=== PATIENT | male | born 1950 | race Caucasian/White ===

== ENCOUNTER 2020-08-12 10:02 | Outpatient (REF) | payer BC, SELFPAY ==
[2020-08-12 10:47] LABS: MANUAL DIFF FLAG NO
[2020-08-12 11:05] LABS: Basophils Percent Auto 0.4 % (0-2); Eosinophils Absolute Auto 0.1 X10*3/uL (0.0-0.4); Eosinophils Percent Auto 1.4 % (0-4); Hematocrit 43.4 % (42-52); Hemoglobin 14.7 g/dl (14.0-18.0); Imm Gran Abs Auto 0.01 X10*3/uL (0.00-0.03); Imm Gran Pct Auto 0.2 % (0.0-0.4); Lymphocytes Absolute Auto 0.9 X10*3/uL (1.2-4.9); Lymphocytes Percent Auto 17.2 % (20-40); Mean Corpuscular HGB Conc 33.9 g/dl (31.0-36.0); Mean Corpuscular Hemoglobin 29.2 pg (27.0-33.0); Mean Corpuscular Volume 86.1 fL (80-98); Mean Platelet Volume 10.2 fL (9.4-12.4); Monocytes Absolute Auto 0.4 X10*3/uL (0.1-1.2); Neutrophils Absolute Auto 3.6 X10*3/uL (2.0-8.3); Neutrophils Percent Auto 72.8 % (45-73); Platelet Count 158 X10*3/uL (160-400); Red Blood Count 5.04 X10*6/uL (4.60-5.80); Red Cell Distribution Width 14.3 % (11.0-16.0)
[2020-08-12 11:25] LABS: Alanine Aminotransferase 8 U/L (0-40); Albumin Level 4.1 g/dL (3.5-5.0); Alkaline Phosphatase 73 U/L (39-117); Aspartate Amino Transferase 13 U/L (5-37); Bilirubin Direct 0.5 mg/dL (0.0-0.5); Bilirubin Total 0.8 mg/dL (0.0-1.0); Total Protein 6.4 g/dL (6.5-8.0)
== END 2020-08-12 10:03 | disposition home or self-care (01) ==
LOC: HO.LABR 10:02
PROVIDERS: PCP Internal Medicine; Visit Provider Internal Medicine
DX: K50.00 Crohn's disease of small intestine without complications (principal)
CPT/HCPCS: 36415; 80076; 85025

== ENCOUNTER 2020-12-02 09:34 | Outpatient (REF) | payer BC, SELFPAY ==
[2020-12-02 11:29] LABS: MANUAL DIFF FLAG NO
[2020-12-02 11:50] LABS: Basophils Percent Auto 0.4 % (0-2); Eosinophils Absolute Auto 0.1 X10*3/uL (0.0-0.4); Eosinophils Percent Auto 1.5 % (0-4); Hematocrit 44.9 % (42-52); Hemoglobin 14.8 g/dl (14.0-18.0); Imm Gran Abs Auto 0.01 X10*3/uL (0.00-0.03); Imm Gran Pct Auto 0.2 % (0.0-0.4); Lymphocytes Absolute Auto 0.8 X10*3/uL (1.2-4.9); Lymphocytes Percent Auto 16.1 % (20-40); Mean Corpuscular Hemoglobin 28.8 pg (27.0-33.0); Mean Corpuscular Volume 87.4 fL (80-98); Mean Platelet Volume 10.5 fL (9.4-12.4); Monocytes Absolute Auto 0.4 X10*3/uL (0.1-1.2); Monocytes Percent Auto 9.1 % (2-11); Neutrophils Absolute Auto 3.4 X10*3/uL (2.0-8.3); Neutrophils Percent Auto 72.7 % (45-73); Platelet Count 157 X10*3/uL (160-400); Red Blood Count 5.14 X10*6/uL (4.60-5.80); Red Cell Distribution Width 14.3 % (11.0-16.0); White Blood Count 4.7 X10*3/uL (4.8-10.8)
[2020-12-02 11:56] LABS: Troponin-I High Sensitivity 6.2 ng/L (<3.5-35.0)
[2020-12-02 12:06] LABS: Alanine Aminotransferase 12 U/L (0-40); Albumin Level 4.1 g/dL (3.5-5.0); Alkaline Phosphatase 78 U/L (39-117); Aspartate Amino Transferase 12 U/L (5-37); Bilirubin Direct 0.5 mg/dL (0.0-0.5); Bilirubin Total 1.2 mg/dL (0.0-1.0); Total Protein 6.4 g/dL (6.5-8.0)
== END 2020-12-02 09:35 | disposition home or self-care (01) ==
LOC: HO.LAB 09:34
PROVIDERS: Absent Provider Internal Medicine; PCP Internal Medicine; Visit Provider Internal Medicine
DX: R07.2 Precordial pain (principal); I10 Essential (primary) hypertension; E78.5 Hyperlipidemia, unspecified; K50.00 Crohn's disease of small intestine without complications; Z79.899 Other long term (current) drug therapy
CPT/HCPCS: 36415; 80076; 84484; 85025; 93005

== ENCOUNTER → 2021-02-04 08:10 | Outpatient (REF) | payer BC, SELFPAY ==
--- NOTE | 2021-02-04 08:13 | CA_ITS ---
Transthoracic Echocardiogram Patient (Last, First, Middle): Onesimo Mart W Gender: Male Date of : 1950 Age: 71 Procedure Date: 02/04/2021 Procedure Type: Transthoracic Echocardiogram Location: OP Height: 175.26 cm Weight: 81.65 kg BSA: 1.98 m2 Heart Rate: bpm BP: 136 / 80 mmHg Hand Packer/Packager: IRINEO Referring MD: Jeff Cross MD Symptoms: R07.2 - Precordial pain Study Quality: Good Conclusions: - Normal left ventricular size and systolic function. - There is mildly increased left ventricular wall thickness. - Diastolic function is normal for age. - Normal right ventricular cavity size and systolic function. - The left atrium is mildly dilated. Findings Left Ventricle Normal left ventricular size and systolic function. There is mildly increased left ventricular wall thickness. The visually estimated ejection fraction is between 55-60%. There is no evidence of regional wall motion abnormalities. Diastolic function is normal for age. Right Ventricle Normal right ventricular cavity size and systolic function. Atria The left atrium is mildly dilated. The right atrium is normal in size. Aortic Valve There is a normal trileaflet aortic valve. There is no aortic valve stenosis. There is trace (trivial) aortic valve regurgitation. Mitral Valve Normal mitral valve structure and function. There is no mitral valve regurgitation. There is no mitral valve stenosis. Pulmonic Valve The pulmonic valve is likely normal. Tricuspid Valve Normal tricuspid valve structure and function. There is trace tricuspid valve regurgitation. Normal right atrial pressure. There is no evidence of pulmonary hypertension. Great Vessels All visible segments of the aorta are normal in size. The visualized portions of the pulmonary artery and branches are normal. Venous The inferior vena cava is normal in size and collapses greater than 50% with inspiration. Pericardium/Pleural There is no evidence of pericardial effusion. Measurements 2D Linear Measurements IVSd: 1.07 0.6-0.9/0.6-1.0 cm LVIDd: 4.73 3.9-5.3/4.2-5.9 cm LVIDd Index: 2.39 2.4-3.2/2.2-3.1 cm/m2 LVIDs: 3.29 2.0-3.6 cm LVPWd: 1.03 0.7-1.1 cm Ao Root: 4.10 2.1-3.5 cm LA Diam: 3.80 2.7-3.8/3.0-4.0 cm LAIDs Index: 1.92 1.5-2.3 cm/m2 LV Mass: 221.30 67-162/88-224 g LV Mass Index: 111.77 43-95/49-115 g/m2 LVOT Diam: 2.30 3.0+(-)1.3 cm 2D Systolic Function EF 4C: 57.30 >55% EF 2C: 66.80 >55% EF BiP: 63.10 >55% Mitral Valve MV Pk E: 1.05 MV PK A: 0.64 MV Decel Time: 211.00 E/A: 1.60 E'Lateral: 10.70 E'Medial: 7.72 E/E' Med: 13.60 E/E' Lat: 9.80 PHT: 62.00 MVA PHT: 3.55 Decel [place]: 4.99 Aortic Valve AoV Pk Guy: 1.20 AoV Mn Guy: 0.85 AoV VTI: 0.28 AoV Pk Grad: 6.00 Aov Mn Grad: 3.00 MAURO Cont.VTI: 3.18 LVOT LVOT Pk Guy: 0.80 LVOT Mn Guy: 0.54 LVOT VTI: 0.21 LVOT Pk Grad: 3.00 LVOT Mn Grad: 1.00 LVOT Diam: 2.30 LVOT Area: 4.15 Diastolic Function MV Pk E: 1.05 MV Pk A: 0.64 E/A: 1.60 E'Medial: 7.72 E/E' Med: 13.60 E' Laterial: 10.70 E/E' Lat: 9.80 Tricuspid Valve TR Pk Guy: 2.10 TR Pk Grad: 18.00 RA Press: 3.00 RVSP: 21.00 Great Vessels Aorta Ao Root-2D: 4.10 2.0-3.7 cm Ao Asc: 3.10 2.1-3.4 cm Ao Arch: 2.80 Updated in Other Vendor System with Status of Final Too Baugh MD electronically signed on 02/07/2021 10:29:05 AM with status of Final
== END ==
LOC: HO.CARD 08:10
PROVIDERS: PCP Internal Medicine; Visit Provider Internal Medicine
DX: R07.2 Precordial pain (principal)
CPT/HCPCS: 93306

== ENCOUNTER → 2021-02-16 07:51 | Outpatient (REF) | payer BC, SELFPAY ==
--- NOTE | ~2021-02-16 | NM_ITS ---
Exercise Myocardial perfusion study Indication: Precordial pain Technique: The patient was brought in for an exercise perfusion study on 02/16/2021. Patient performed exercise as per Dmitri protocol and was injected 25 mCi of sestamibi was given intravenously one target HR was achieved. Images were obtained using the SPECT gamma camera interlaced with the gating device. Images were obtained in supine position. Resting perfusion study was performed on 02/17/2021. Patient was administered any 5 mCi of sestamibi intravenously at rest. Images were then obtained in supine position. Images obtained with and without CT attenuation. Total DLP 97 mGy-cm. Images were processed with the software and compared side to side in short axis, horizontal long axis and vertical long axis views. Findings: The stress perfusion study showed nonattenuated images show minimally reduced uptake in the basal septum of the LV myocardium. Remainder of the LV myocardium is normally perfused. Attenuation corrected images show mildly reduced uptake in the distal septum and apex of the LV myocardium.. The gated study shows normal LV systolic function with calculated LVEF of 60%. LV cavity is mildly dilated in size. The gated study shows normal systolic wall thickening and contraction of all segments. There is no transient ischemic dilation. Resting study shows no change in perfusion pattern compared to stress perfusion study. Gating at rest reveals normal systolic wall motion with ejection fraction at 63%. The findings are consistent with no clear reversible defect suggestive of ischemia. Most likely normal myocardial perfusion. NM/NM cardiolite stress test Impression: 1. Likely normal myocardial perfusion 2. Gated LVEF is 60% 3. Transient ischemic dilatation not present Stress EKG is equivocal for ischemia
--- NOTE | 2021-02-16 08:00 | CA_ITS ---
Acquisition Time: 2021-02-16 08:33:37 Total Exercise Time: 00:06:46 Test Indications: RO7.2 PRECORDIAL CHEST PAIN Medications: Protocol: MEHNAZ Max HR: 136 BPM 91% of Pred: 148 BPM Max BP: 202/078 mmHG Max Work Load: 8.1 METS Exercise stress test with exercise 6 min 46 sec of Mehnaz protocol, without anginal symptoms, with rare PVC during exercise and frequent PVC and ventricular cuplets during recovery, with hypertensive reponse to exercise with max BP 202/ 78, with QRS width 0.08 ms at baseline and with increased heart rate width increased to 0.12ms, with ST depressions in V6 only, not meeting criteria for ischemia. Nuclear images pending. Test reviewed with Dr Cross Referred By: Jeff Cross Overread By: CONSTANTINO ANTHONY
== END ==
LOC: HO.CARD 07:51
PROVIDERS: Visit Provider Internal Medicine
DX: R07.2 Precordial pain (principal)
CPT/HCPCS: 78452; 93017; A9500

== ENCOUNTER 2021-05-26 10:12 | Outpatient (REF) | payer BC, SELFPAY ==
[2021-05-26 11:11] LABS: MANUAL DIFF FLAG NO
[2021-05-26 11:29] LABS: Basophils Percent Auto 0.4 % (0-2); Eosinophils Absolute Auto 0.1 X10*3/uL (0.0-0.4); Eosinophils Percent Auto 1.4 % (0-4); Hematocrit 44.2 % (42-52); Hemoglobin 15.1 g/dl (14.0-18.0); Imm Gran Abs Auto 0.02 X10*3/uL (0.00-0.03); Imm Gran Pct Auto 0.4 % (0.0-0.4); Lymphocytes Absolute Auto 0.9 X10*3/uL (1.2-4.9); Lymphocytes Percent Auto 17.6 % (20-40); Mean Corpuscular HGB Conc 34.2 g/dl (31.0-36.0); Mean Corpuscular Hemoglobin 29.6 pg (27.0-33.0); Mean Corpuscular Volume 86.7 fL (80-98); Mean Platelet Volume 10.2 fL (9.4-12.4); Monocytes Absolute Auto 0.5 X10*3/uL (0.1-1.2); Monocytes Percent Auto 9.5 % (2-11); Neutrophils Absolute Auto 3.5 X10*3/uL (2.0-8.3); Neutrophils Percent Auto 70.7 % (45-73); Platelet Count 161 X10*3/uL (160-400); Red Cell Distribution Width 14.1 % (11.0-16.0); White Blood Count 4.9 X10*3/uL (4.8-10.8)
[2021-05-26 11:35] LABS: Alanine Aminotransferase 11 U/L (0-40); Albumin Level 4.2 g/dL (3.5-5.0); Alkaline Phosphatase 82 U/L (39-117); Aspartate Amino Transferase 14 U/L (5-37); Bilirubin Direct 0.5 mg/dL (0.0-0.5); Bilirubin Total 1.3 mg/dL (0.0-1.0); Total Protein 6.5 g/dL (6.5-8.0)
== END 2021-05-26 10:13 | disposition home or self-care (01) ==
LOC: HO.LABR 10:12
PROVIDERS: PCP Internal Medicine; Visit Provider Internal Medicine
DX: K50.00 Crohn's disease of small intestine without complications (principal)
CPT/HCPCS: 36415; 80076; 85025

== ENCOUNTER 2021-06-17 08:08 | Outpatient (REF) | payer BC, SELFPAY ==
[2021-06-17 08:27] LABS: MANUAL DIFF FLAG NO
[2021-06-17 08:57] LABS: Basophils Percent Auto 0.4 % (0-2); Eosinophils Absolute Auto 0.1 X10*3/uL (0.0-0.4); Eosinophils Percent Auto 1.2 % (0-4); Hematocrit 43.3 % (42-52); Hemoglobin 14.6 g/dl (14.0-18.0); Imm Gran Abs Auto 0.01 X10*3/uL (0.00-0.03); Imm Gran Pct Auto 0.2 % (0.0-0.4); Lymphocytes Absolute Auto 0.6 X10*3/uL (1.2-4.9); Lymphocytes Percent Auto 11.2 % (20-40); Mean Corpuscular HGB Conc 33.7 g/dl (31.0-36.0); Mean Corpuscular Hemoglobin 28.9 pg (27.0-33.0); Mean Corpuscular Volume 85.6 fL (80-98); Mean Platelet Volume 10.4 fL (9.4-12.4); Monocytes Absolute Auto 0.5 X10*3/uL (0.1-1.2); Monocytes Percent Auto 9.3 % (2-11); Neutrophils Absolute Auto 4.4 X10*3/uL (2.0-8.3); Neutrophils Percent Auto 77.7 % (45-73); Platelet Count 155 X10*3/uL (160-400); Red Blood Count 5.06 X10*6/uL (4.60-5.80); Red Cell Distribution Width 14.2 % (11.0-16.0); White Blood Count 5.6 X10*3/uL (4.8-10.8)
[2021-06-17 09:23] LABS: Alanine Aminotransferase 12 U/L (0-40); Alkaline Phosphatase 75 U/L (39-117); Anion Gap 8 (12-20); Aspartate Amino Transferase 13 U/L (5-37); Bilirubin Total 1.2 mg/dL (0.0-1.0); Blood Urea Nitrogen 9 mg/dL (9-16); Calcium 9.1 mg/dL (8.4-10.2); Carbon Dioxide 32 mmol/L (22-29); Chloride 107 mmol/L (96-108); Cholesterol 102 mg/dL; Estimated Glomerular Filt Rate > 60; Glucose Random 106 mg/dL (60-115); HDL Cholesterol 40 mg/dL; LDL Cholesterol Calculated 51 mg/dl; Potassium 4.4 mmol/L (3.3-5.1); Sodium 143 mmol/L (135-145); Total Protein 6.1 g/dL (6.5-8.0); Triglycerides 58 mg/dL
[2021-06-17 09:43] LABS: Thyroid Stimulating Hormone 1.66 uIU/mL (0.32-4.0); Vitamin D 25-OH Total 32.4 ng/mL (>30)
[2021-06-17 10:14] LABS: Folate > 20.0 ng/mL (> or = 4.0); Vitamin B12 1424 pg/mL (200-900)
== END 2021-06-17 08:09 | disposition home or self-care (01) ==
LOC: HO.LAB 08:08
PROVIDERS: PCP Internal Medicine; Visit Provider Internal Medicine
DX: R07.2 Precordial pain (principal); I10 Essential (primary) hypertension; E55.9 Vitamin D deficiency, unspecified; K50.00 Crohn's disease of small intestine without complications
CPT/HCPCS: 36415; 80053; 80061; 82306; 82607; 82746; 84443; 85025

== ENCOUNTER 2021-08-19 13:04 | Outpatient (REF) | payer BC, SELFPAY ==
[2021-08-19 13:19] LABS: MANUAL DIFF FLAG NO
[2021-08-19 13:55] LABS: Basophils Percent Auto 0.4 % (0-2); Eosinophils Absolute Auto 0.1 X10*3/uL (0.0-0.4); Eosinophils Percent Auto 2.1 % (0-4); Hematocrit 44.7 % (42.0-52.0); Hemoglobin 14.7 g/dl (14.0-18.0); Imm Gran Abs Auto 0.01 X10*3/uL (0.00-0.03); Imm Gran Pct Auto 0.2 % (0.0-0.4); Lymphocytes Absolute Auto 1.1 X10*3/uL (1.2-4.9); Lymphocytes Percent Auto 22.4 % (20-40); Mean Corpuscular HGB Conc 32.9 g/dl (31.0-36.0); Mean Corpuscular Hemoglobin 28.9 pg (27.0-33.0); Mean Platelet Volume 10.8 fL (9.4-12.4); Monocytes Absolute Auto 0.5 X10*3/uL (0.1-1.2); Monocytes Percent Auto 10.7 % (2-11); Neutrophils Absolute Auto 3.1 x10*3/uL (2.0-8.3); Neutrophils Percent Auto 64.2 % (45-73); Platelet Count 184 X10*3/uL (160-400); Red Blood Count 5.08 X10*6/uL (4.60-5.80); Red Cell Distribution Width 14.1 % (11.0-16.0); White Blood Count 4.9 X10*3/uL (4.8-10.8)
[2021-08-19 14:26] LABS: Alanine Aminotransferase 116 U/L (0-40); Alkaline Phosphatase 112 U/L (39-117); Aspartate Amino Transferase 57 U/L (5-37); Bilirubin Direct 0.4 mg/dL (0.0-0.5); Bilirubin Total 1.1 mg/dL (0.0-1.0); Total Protein 6.5 g/dL (6.5-8.0)
== END 2021-08-19 13:05 | disposition home or self-care (01) ==
LOC: HO.LABR 13:04
PROVIDERS: PCP Internal Medicine; Visit Provider Internal Medicine
DX: K50.00 Crohn's disease of small intestine without complications (principal)
CPT/HCPCS: 36415; 80076; 85025

== ENCOUNTER 2021-08-24 09:05 | Outpatient (REF) | payer BC, SELFPAY ==
--- NOTE | ~2021-08-24 | US_ITS ---
EXAMINATION: US ABDOMEN COMPLETE CLINICAL INFORMATION: Elevated liver enzymes. Crohn's disease. COMPARISON: None TECHNIQUE: Real-time imaging of the abdominal viscera. FINDINGS: PANCREAS: Not well visualized due to bowel gas ABDOMINAL AORTA: The distal abdominal aorta is normal in caliber. The proximal and mid abdominal aorta are not well visualized due to bowel gas. INFERIOR VENA CAVA: Not well visualized due to bowel gas. LIVER: The liver is normal in size. The liver contour is normal. Liver echotexture is slightly increased. No focal hepatic lesion. There is no intrahepatic biliary duct dilatation seen. GALLBLADDER: Normal. The gallbladder is physiologically distended without evidence of stones, sludge, polyps, wall thickening or pericholecystic fluid. COMMON BILE DUCT: Normal in caliber measuring 0.4 cm in diameter. RIGHT KIDNEY: There is a 3 cm cyst in the lower pole. No hydronephrosis or renal calculi. The kidney measures 9.3 cm in maximum dimension. LEFT KIDNEY: Normal. No hydronephrosis. No renal calculi or focal parenchymal lesions. The kidney measures 12.0 cm in maximum dimension. SPLEEN: Normal. The spleen measures 12.0 cm in maximum dimension. FREE FLUID: None. US/US abdomen complete IMPRESSION: Slightly echogenic liver probably representing fatty infiltration. Limited visualization of the pancreas, aorta and IVC. Right renal cyst.
== END 2021-08-24 09:06 | disposition home or self-care (01) ==
LOC: HO.US 09:05
PROVIDERS: PCP Internal Medicine; Visit Provider Internal Medicine
DX: R74.8 Abnormal levels of other serum enzymes (principal); K50.00 Crohn's disease of small intestine without complications
CPT/HCPCS: 76700

== ENCOUNTER 2021-08-29 08:44 | Outpatient (REF) | payer BC, SELFPAY ==
[2021-08-29 10:04] LABS: Prothrombin Time 11.6 SEC (9.9-13.0)
[2021-08-29 10:34] LABS: Alanine Aminotransferase 23 U/L (0-40); Alkaline Phosphatase 93 U/L (39-117); Aspartate Amino Transferase 15 U/L (5-37); Bilirubin Direct 0.4 mg/dL (0.0-0.5); Bilirubin Total 0.8 mg/dL (0.0-1.0); C Reactive Protein 0.17 mg/dL (< or = 0.50); Total Protein 6.3 g/dL (6.5-8.0)
[2021-08-29 10:41] LABS: HBc Num1 0.05 S/CO (0.00-0.79); HBsAGNum1 0.21 S/CO (0.00-0.99); Hepatitis B Core Antibody Nonreactive (Nonreactive); Hepatitis B Surface Antigen Negative (Negative)
[2021-08-29 10:51] LABS: Erythrocyte Sedimentation Rate 3 MM/HR (0-15)
[2021-08-29 10:54] LABS: ~Hepatitis B Surface Antibody NONREACTIVE (Nonreactive); ~Hepatitis C Antibody Nonreactive (Nonreactive)
[2021-08-31 07:53] LABS: Hepatitis A Antibody IgM 0.11 Index (0-0.79); ~Hepatitis A Antibody IgM Nonreactive (Nonreactive)
[2021-08-31 08:20] LABS: HBS Num1 0.46 mIU/mL (0-7.99); ~HepC Num1 0.08 S/CO (0.00-0.79)
== END 2021-08-29 08:45 | disposition home or self-care (01) ==
LOC: HO.LAB 08:44
PROVIDERS: PCP Internal Medicine; Visit Provider Internal Medicine
DX: R74.8 Abnormal levels of other serum enzymes (principal); K50.00 Crohn's disease of small intestine without complications; Z79.01 Long term (current) use of anticoagulants
CPT/HCPCS: 36415; 80076; 85610; 85652; 86140; 86704; 86706; 86709; 86803; 87340

== ENCOUNTER 2021-10-20 11:05 | Outpatient (REF) | payer BC, SELFPAY ==
[2021-10-20 11:28] LABS: MANUAL DIFF FLAG NO
[2021-10-20 11:55] LABS: Basophils Percent Auto 0.2 % (0-2); Eosinophils Absolute Auto 0.1 X10*3/uL (0.0-0.4); Eosinophils Percent Auto 1.4 % (0-4); Hematocrit 43.6 % (42.0-52.0); Hemoglobin 14.8 g/dl (14.0-18.0); Imm Gran Abs Auto 0.01 X10*3/uL (0.00-0.03); Imm Gran Pct Auto 0.2 % (0.0-0.4); Lymphocytes Absolute Auto 0.8 X10*3/uL (1.2-4.9); Lymphocytes Percent Auto 17.8 % (20-40); Mean Corpuscular HGB Conc 33.9 g/dl (31.0-36.0); Mean Corpuscular Hemoglobin 29.4 pg (27.0-33.0); Mean Corpuscular Volume 86.5 fL (80.0-98.0); Mean Platelet Volume 10.7 fL (9.4-12.4); Monocytes Absolute Auto 0.5 X10*3/uL (0.1-1.2); Monocytes Percent Auto 10.1 % (2-11); Neutrophils Absolute Auto 3.1 x10*3/uL (2.0-8.3); Neutrophils Percent Auto 70.3 % (45-73); Platelet Count 173 X10*3/uL (160-400); Red Blood Count 5.04 X10*6/uL (4.60-5.80); Red Cell Distribution Width 14.6 % (11.0-16.0); White Blood Count 4.4 X10*3/uL (4.8-10.8)
[2021-10-20 12:22] LABS: Alanine Aminotransferase 10 U/L (0-40); Alkaline Phosphatase 75 U/L (39-117); Aspartate Amino Transferase 12 U/L (5-37); Bilirubin Direct 0.4 mg/dL (0.0-0.5); Bilirubin Total 1.1 mg/dL (0.0-1.0); Total Protein 6.3 g/dL (6.5-8.0)
== END 2021-10-20 11:06 | disposition home or self-care (01) ==
LOC: HO.LABR 11:05
PROVIDERS: PCP Internal Medicine; Visit Provider Internal Medicine
DX: K50.00 Crohn's disease of small intestine without complications (principal)
CPT/HCPCS: 36415; 80076; 85025

== ENCOUNTER 2021-12-07 12:24 | Outpatient (REF) | payer BC, SELFPAY ==
[2021-12-07 12:37] LABS: MANUAL DIFF FLAG NO
[2021-12-07 13:05] LABS: Basophils Percent Auto 0.3 % (0-2); Eosinophils Absolute Auto 0.1 X10*3/uL (0.0-0.4); Eosinophils Percent Auto 1.1 % (0-4); Hematocrit 44.8 % (42.0-52.0); Imm Gran Abs Auto 0.02 X10*3/uL (0.00-0.03); Imm Gran Pct Auto 0.3 % (0.0-0.4); Lymphocytes Percent Auto 15.9 % (20-40); Mean Corpuscular HGB Conc 33.5 g/dl (31.0-36.0); Mean Corpuscular Hemoglobin 29.1 pg (27.0-33.0); Mean Platelet Volume 10.4 fL (9.4-12.4); Monocytes Absolute Auto 0.6 X10*3/uL (0.1-1.2); Monocytes Percent Auto 9.4 % (2-11); Neutrophils Absolute Auto 4.6 x10*3/uL (2.0-8.3); Platelet Count 173 X10*3/uL (160-400); Red Blood Count 5.15 X10*6/uL (4.60-5.80); Red Cell Distribution Width 14.5 % (11.0-16.0); White Blood Count 6.3 X10*3/uL (4.8-10.8)
[2021-12-07 13:28] LABS: Alanine Aminotransferase 18 U/L (0-40); Albumin Level 4.1 g/dL (3.5-5.0); Alkaline Phosphatase 74 U/L (39-117); Aspartate Amino Transferase 21 U/L (5-37); Bilirubin Direct 0.5 mg/dL (0.0-0.5); Bilirubin Total 1.3 mg/dL (0.0-1.0); Total Protein 6.3 g/dL (6.5-8.0)
== END 2021-12-07 12:25 | disposition home or self-care (01) ==
LOC: HO.LABR 12:24
PROVIDERS: PCP Internal Medicine; Visit Provider Internal Medicine
DX: K50.00 Crohn's disease of small intestine without complications (principal)
CPT/HCPCS: 36415; 80076; 85025

== ENCOUNTER 2022-03-17 11:16 | Outpatient (REF) | payer BC, SELFPAY ==
[2022-03-17 11:23] LABS: MANUAL DIFF FLAG NO
[2022-03-17 12:20] LABS: Basophils Percent Auto 0.4 % (0-2); Eosinophils Absolute Auto 0.1 X10*3/uL (0.0-0.4); Eosinophils Percent Auto 1.9 % (0-4); Hematocrit 43.5 % (42.0-52.0); Hemoglobin 14.8 g/dl (14.0-18.0); Imm Gran Abs Auto 0.01 X10*3/uL (0.00-0.03); Imm Gran Pct Auto 0.2 % (0.0-0.4); Lymphocytes Absolute Auto 0.9 X10*3/uL (1.2-4.9); Lymphocytes Percent Auto 17.2 % (20-40); Mean Corpuscular Hemoglobin 29.3 pg (27.0-33.0); Mean Corpuscular Volume 86.1 fL (80.0-98.0); Mean Platelet Volume 10.4 fL (9.4-12.4); Monocytes Absolute Auto 0.5 X10*3/uL (0.1-1.2); Monocytes Percent Auto 9.2 % (2-11); Neutrophils Absolute Auto 3.7 x10*3/uL (2.0-8.3); Neutrophils Percent Auto 71.1 % (45-73); Platelet Count 171 X10*3/uL (160-400); Red Blood Count 5.05 X10*6/uL (4.60-5.80); Red Cell Distribution Width 14.4 % (11.0-16.0); White Blood Count 5.1 X10*3/uL (4.8-10.8)
[2022-03-17 12:42] LABS: Alanine Aminotransferase 14 U/L (0-40); Albumin Level 4.2 g/dL (3.5-5.0); Alkaline Phosphatase 85 U/L (39-117); Aspartate Amino Transferase 16 U/L (5-37); Bilirubin Direct 0.5 mg/dL (0.0-0.5); Bilirubin Total 1.3 mg/dL (0.0-1.0); Total Protein 6.4 g/dL (6.5-8.0)
== END 2022-03-17 11:17 | disposition home or self-care (01) ==
LOC: HO.LABR 11:16
PROVIDERS: Visit Provider Internal Medicine
DX: K50.00 Crohn's disease of small intestine without complications (principal)
CPT/HCPCS: 36415; 80076; 85025

== ENCOUNTER 2022-06-28 11:52 | Outpatient (REF) | payer BC, SELFPAY ==
[2022-06-28 12:12] LABS: MANUAL DIFF FLAG NO
[2022-06-28 13:13] LABS: Basophils Percent Auto 0.6 % (0-2); Eosinophils Absolute Auto 0.1 X10*3/uL (0.0-0.4); Eosinophils Percent Auto 1.4 % (0-4); Hematocrit 43.3 % (42.0-52.0); Hemoglobin 14.5 g/dl (14.0-18.0); Imm Gran Abs Auto 0.01 X10*3/uL (0.00-0.03); Imm Gran Pct Auto 0.2 % (0.0-0.4); Lymphocytes Absolute Auto 0.9 X10*3/uL (1.2-4.9); Mean Corpuscular HGB Conc 33.5 g/dl (31.0-36.0); Mean Corpuscular Hemoglobin 29.1 pg (27.0-33.0); Mean Corpuscular Volume 86.8 fL (80.0-98.0); Mean Platelet Volume 10.5 fL (9.4-12.4); Monocytes Absolute Auto 0.5 X10*3/uL (0.1-1.2); Monocytes Percent Auto 10.7 % (2-11); Neutrophils Absolute Auto 3.4 x10*3/uL (2.0-8.3); Neutrophils Percent Auto 68.1 % (45-73); Platelet Count 174 X10*3/uL (160-400); Red Blood Count 4.99 X10*6/uL (4.60-5.80); Red Cell Distribution Width 14.4 % (11.0-16.0)
[2022-06-28 13:46] LABS: Alanine Aminotransferase 13 U/L (0-40); Albumin Level 4.1 g/dL (3.5-5.0); Alkaline Phosphatase 78 U/L (39-117); Aspartate Amino Transferase 15 U/L (5-37); Bilirubin Direct 0.4 mg/dL (0.0-0.5); Bilirubin Total 1.1 mg/dL (0.0-1.0); Total Protein 6.3 g/dL (6.5-8.0)
== END 2022-06-28 11:53 | disposition home or self-care (01) ==
LOC: HO.LABR 11:52
PROVIDERS: PCP Internal Medicine; Visit Provider Internal Medicine
DX: K50.00 Crohn's disease of small intestine without complications (principal)
CPT/HCPCS: 36415; 80076; 85025

== ENCOUNTER 2022-12-12 10:59 | Outpatient (REF) | payer BC, SELFPAY ==
[2022-12-12 11:19] LABS: MANUAL DIFF FLAG NO
[2022-12-12 11:56] LABS: Basophils Percent Auto 0.3 % (0-2); Eosinophils Absolute Auto 0.1 X10*3/uL (0.0-0.4); Eosinophils Percent Auto 1.1 % (0-4); Hematocrit 41.9 % (42.0-52.0); Hemoglobin 14.5 g/dl (14.0-18.0); Imm Gran Abs Auto 0.02 X10*3/uL (0.00-0.03); Imm Gran Pct Auto 0.3 % (0.0-0.4); Lymphocytes Percent Auto 14.4 % (20-40); Mean Corpuscular HGB Conc 34.6 g/dl (31.0-36.0); Mean Corpuscular Hemoglobin 29.5 pg (27.0-33.0); Mean Corpuscular Volume 85.2 fL (80.0-98.0); Mean Platelet Volume 10.2 fL (9.4-12.4); Monocytes Absolute Auto 0.7 X10*3/uL (0.1-1.2); Neutrophils Absolute Auto 4.9 x10*3/uL (2.0-8.3); Neutrophils Percent Auto 73.9 % (45-73); Platelet Count 170 X10*3/uL (160-400); Red Blood Count 4.92 X10*6/uL (4.60-5.80); Red Cell Distribution Width 13.9 % (11.0-16.0); White Blood Count 6.6 X10*3/uL (4.8-10.8)
[2022-12-12 12:27] LABS: Alanine Aminotransferase 10 U/L (0-40); Alkaline Phosphatase 82 U/L (39-117); Aspartate Amino Transferase 13 U/L (5-37); Bilirubin Direct 0.4 mg/dL (0.0-0.5); Bilirubin Total 1.4 mg/dL (0.0-1.0); Total Protein 6.1 g/dL (6.5-8.0)
== END 2022-12-12 11:00 | disposition home or self-care (01) ==
LOC: HO.LABR 10:59
PROVIDERS: PCP Internal Medicine; Visit Provider Internal Medicine
DX: K50.00 Crohn's disease of small intestine without complications (principal)
CPT/HCPCS: 36415; 80076; 85025

== ENCOUNTER 2023-03-02 09:05 | Outpatient (REF) | payer BC, SELFPAY ==
[2023-03-02 09:18] LABS: MANUAL DIFF FLAG NO
[2023-03-02 10:05] LABS: Basophils Percent Auto 0.2 % (0-2); Eosinophils Absolute Auto 0.1 X10*3/uL (0.0-0.4); Eosinophils Percent Auto 1.8 % (0-4); Hematocrit 41.2 % (42.0-52.0); Imm Gran Abs Auto 0.01 X10*3/uL (0.00-0.03); Imm Gran Pct Auto 0.2 % (0.0-0.4); Lymphocytes Absolute Auto 0.7 X10*3/uL (1.2-4.9); Lymphocytes Percent Auto 16.3 % (20-40); Mean Corpuscular Hemoglobin 29.4 pg (27.0-33.0); Mean Corpuscular Volume 86.4 fL (80.0-98.0); Mean Platelet Volume 10.3 fL (9.4-12.4); Monocytes Absolute Auto 0.4 X10*3/uL (0.1-1.2); Monocytes Percent Auto 9.6 % (2-11); Neutrophils Absolute Auto 3.2 x10*3/uL (2.0-8.3); Neutrophils Percent Auto 71.9 % (45-73); Platelet Count 155 X10*3/uL (160-400); Red Blood Count 4.77 X10*6/uL (4.60-5.80); Red Cell Distribution Width 14.4 % (11.0-16.0); White Blood Count 4.5 X10*3/uL (4.8-10.8)
[2023-03-02 10:55] LABS: Alanine Aminotransferase 12 U/L (0-40); Albumin Level 3.7 g/dL (3.5-5.0); Alkaline Phosphatase 75 U/L (39-117); Aspartate Amino Transferase 13 U/L (5-37); Bilirubin Direct 0.3 mg/dL (0.0-0.5); Bilirubin Total 1.2 mg/dL (0.0-1.0); Total Protein 6.1 g/dL (6.5-8.0)
== END 2023-03-02 09:06 | disposition home or self-care (01) ==
LOC: HO.LABR 09:05
PROVIDERS: Visit Provider Internal Medicine
DX: K50.00 Crohn's disease of small intestine without complications (principal)
CPT/HCPCS: 36415; 80076; 85025

== ENCOUNTER 2023-05-31 09:01 | Outpatient (REF) | payer BC, SELFPAY ==
[2023-05-31 09:17] LABS: MANUAL DIFF FLAG NO
[2023-05-31 10:06] LABS: Basophils Percent Auto 0.2 % (0-2); Eosinophils Absolute Auto 0.1 X10*3/uL (0.0-0.4); Eosinophils Percent Auto 1.9 % (0-4); Hematocrit 42.4 % (42.0-52.0); Hemoglobin 14.4 g/dl (14.0-18.0); Imm Gran Abs Auto 0.01 X10*3/uL (0.00-0.03); Imm Gran Pct Auto 0.2 % (0.0-0.4); Lymphocytes Absolute Auto 0.7 X10*3/uL (1.2-4.9); Lymphocytes Percent Auto 16.6 % (20-40); Mean Corpuscular Hemoglobin 29.2 pg (27.0-33.0); Mean Platelet Volume 9.9 fL (9.4-12.4); Monocytes Absolute Auto 0.3 X10*3/uL (0.1-1.2); Monocytes Percent Auto 8.2 % (2-11); Neutrophils Percent Auto 72.9 % (45-73); Platelet Count 144 X10*3/uL (160-400); Red Blood Count 4.93 X10*6/uL (4.60-5.80); Red Cell Distribution Width 14.1 % (11.0-16.0); White Blood Count 4.2 X10*3/uL (4.8-10.8)
[2023-05-31 11:14] LABS: Alanine Aminotransferase 9 U/L (0-40); Albumin Level 3.9 g/dL (3.5-5.0); Alkaline Phosphatase 77 U/L (39-117); Aspartate Amino Transferase 12 U/L (5-37); Bilirubin Direct 0.4 mg/dL (0.0-0.5); Bilirubin Total 0.9 mg/dL (0.0-1.0); Total Protein 6.2 g/dL (6.5-8.0)
== END 2023-05-31 09:02 | disposition home or self-care (01) ==
LOC: HO.LAB 09:01
PROVIDERS: PCP Internal Medicine; Visit Provider Internal Medicine
DX: K50.00 Crohn's disease of small intestine without complications (principal)
CPT/HCPCS: 36415; 80076; 85025

== ENCOUNTER 2023-09-21 09:38 | Outpatient (REF) | payer BC, SELFPAY ==
[2023-09-21 09:48] LABS: MANUAL DIFF FLAG NO
[2023-09-21 10:40] LABS: Basophils Percent Auto 0.2 % (0-2); Eosinophils Absolute Auto 0.1 X10*3/uL (0.0-0.4); Eosinophils Percent Auto 1.1 % (0-4); Hematocrit 43.1 % (42.0-52.0); Hemoglobin 14.6 g/dl (14.0-18.0); Imm Gran Abs Auto 0.01 X10*3/uL (0.00-0.03); Imm Gran Pct Auto 0.2 % (0.0-0.4); Lymphocytes Percent Auto 15.3 % (20-40); Mean Corpuscular HGB Conc 33.9 g/dl (31.0-36.0); Mean Corpuscular Hemoglobin 28.8 pg (27.0-33.0); Mean Platelet Volume 10.5 fL (9.4-12.4); Monocytes Absolute Auto 0.5 X10*3/uL (0.1-1.2); Monocytes Percent Auto 8.4 % (2-11); Neutrophils Absolute Auto 4.7 x10*3/uL (2.0-8.3); Neutrophils Percent Auto 74.8 % (45-73); Platelet Count 142 X10*3/uL (160-400); Red Blood Count 5.07 X10*6/uL (4.60-5.80); Red Cell Distribution Width 14.1 % (11.0-16.0); White Blood Count 6.2 X10*3/uL (4.8-10.8)
== END 2023-09-21 09:39 | disposition home or self-care (01) ==
LOC: HO.LABR 09:38
PROVIDERS: Visit Provider Internal Medicine
DX: K50.00 Crohn's disease of small intestine without complications (principal)
CPT/HCPCS: 36415; 85025

== ENCOUNTER 2023-11-23 09:33 | Outpatient (REF) | payer OTHER, SELFPAY ==
[2023-11-23 10:42] LABS: Basophils Percent Auto 0.4 % (0-2); Eosinophils Absolute Auto 0.1 X10*3/uL (0.0-0.4); Eosinophils Percent Auto 2.3 % (0-4); Hematocrit 43.9 % (42.0-52.0); Imm Gran Abs Auto 0.02 X10*3/uL (0.00-0.03); Imm Gran Pct Auto 0.4 % (0.0-0.4); Lymphocytes Percent Auto 19.4 % (20-40); MANUAL DIFF FLAG NO; Mean Corpuscular HGB Conc 34.2 g/dl (31.0-36.0); Mean Corpuscular Hemoglobin 29.2 pg (27.0-33.0); Mean Corpuscular Volume 85.6 fL (80.0-98.0); Mean Platelet Volume 9.9 fL (9.4-12.4); Monocytes Absolute Auto 0.4 X10*3/uL (0.1-1.2); Monocytes Percent Auto 7.9 % (2-11); Neutrophils Absolute Auto 3.6 x10*3/uL (2.0-8.3); Neutrophils Percent Auto 69.6 % (45-73); Platelet Count 155 X10*3/uL (160-400); Red Blood Count 5.13 X10*6/uL (4.60-5.80); Red Cell Distribution Width 14.2 % (11.0-16.0); White Blood Count 5.2 X10*3/uL (4.8-10.8)
[2023-11-23 11:21] LABS: Alanine Aminotransferase 13 U/L (0-40); Albumin Level 3.9 g/dL (3.5-5.0); Alkaline Phosphatase 82 U/L (39-117); Aspartate Amino Transferase 15 U/L (5-37); Bilirubin Direct 0.3 mg/dL (0.0-0.5); Bilirubin Total 0.9 mg/dL (0.0-1.0); Total Protein 6.2 g/dL (6.5-8.0)
== END 2023-11-23 09:34 | disposition home or self-care (01) ==
LOC: HO.LABR 09:33
PROVIDERS: Visit Provider Internal Medicine
DX: K50.00 Crohn's disease of small intestine without complications (principal)
CPT/HCPCS: 36415; 80076; 85025

== ENCOUNTER 2023-12-21 11:25 | Day surgery (SDC) | payer OTHER, SELFPAY ==
[2023-12-21 11:43] VITALS: BMI 26.5
[2023-12-21] MEDS: Lactated Ringers 1,000 ML 80 ML IVCONT (11:57)
[2023-12-21 12:11] VITALS: BP 150/66; PULSE 53; RESP 18; TEMP 36.6; O2SAT 98
--- NOTE | 2023-12-21 12:16 | PC.NURSE ---
IV attempt x 2 by author. Insertion by gabby banks rn
--- NOTE | 2023-12-21 12:32 | HO.ANESPROP2 ---
HPI - Anesthesia Eval Consult details Narrative: 73 yo male patient for Colonoscopy PMF Active Problems Active Problems: All Active Problems Other and unspecified hyperlipidemia (Acute) Essential hypertension (Acute) Precordial chest pain (Acute)- not recently. Had echo and stress test which were negative for ischemia Past Medical History Medical History Crohn's disease Other and unspecified hyperlipidemia Essential hypertension Family History Family History Father No problems noted. Mother CVD (cardiovascular disease) Pacemaker Family history of problems with anesthesia: No Surgical History Surgical History History of knee surgery History of inguinal hernia repair History of Mohs micrographic surgery for skin cancer History of shoulder surgery History of Problems with Anesthesia: No Social History Social History Patient Tobacco Use Status: Former Tobacco user Are you DNR?: No Advance Directives: No Advance Directives Information Provided: Yes Nutrition Risks: No Nutritional Risk Meds Allergies Allergy/AdvReac Type Severity Reaction Status Date / Time No Known Allergies Allergy Unknown Verified 12/21/23 11:50 Active Medications: Current Medications Lactated Ringer's (Lr) 1,000 mls @ 80 mls/hr IVCONT .[id number] Last Admin: 12/21/23 11:57 Dose: 80 mls/hr Sodium Biphosphate/Sodium Phosphate (Sodium Phosphate,Guthrie-Dibasic 133 Ml Enema) 133 ml MT ONCE PRN PRN Reason: Poor Colonoscopy Prep Results Home Medications ?Medication ?Instructions ?Recorded ?Confirmed ?Last Taken ?Type amlodipine 10 mg tablet 10 mg PO DAILY 12/02/20 12/21/23 12/21/23 History aspirin 81 mg tablet,delayed 81 mg PO DAILY 12/02/20 12/21/23 12/16/23 History release atorvastatin 40 mg tablet 40 mg PO DAILY 12/02/20 12/21/23 Unknown History azathioprine 75 mg tablet (Azasan) 75 mg PO DAILY 12/02/20 12/21/23 Unknown History cholecalciferol (vitamin D3) 25 25 mcg PO DAILY 12/02/20 12/21/23 Unknown History mcg (1,000 unit) capsule diphenoxylate-atropine 2.5 1 tab PO DAILY 12/02/20 12/21/23 Unknown History mg-0.025 mg tablet folic acid 1 mg tablet 1 mg PO DAILY 12/02/20 12/21/23 Unknown History lisinopril 10 mg tablet 10 mg PO DAILY 12/02/20 12/21/23 Unknown History omeprazole 20 mg capsule,delayed 20 mg PO DAILY 12/02/20 12/21/23 Unknown History release sertraline 50 mg tablet 50 mg PO DAILY 12/02/20 12/21/23 Unknown History finasteride 5 mg tablet 5 mg PO QAM 12/21/23 12/21/23 Unknown History tamsulosin 0.4 mg capsule 0.4 mg PO BEDTIME 12/21/23 12/21/23 Unknown History Exam Height,Weight and Vital Signs: Height 5 ft 9.5 in Weight 82.69 kg Last Vital Signs Temp 97.9 F 12/21/23 12:11 Pulse 53 12/21/23 12:11 Resp 18 12/21/23 12:11 BP 150/66 H 12/21/23 12:11 Pulse Ox 98 12/21/23 12:11 O2 Del Method Room Air 12/21/23 12:11 Airway Mallampati Class: II TM Dist: >3cm Neck ROM: Full Loose/Missing/Broken Teeth: No (Several caps intact. Denies broken, loose, missing teeth) Heart: RRR Lungs: CTAB Assessment and Plan Assessment Anesthesia Assessment: Anesthesia Plan Discussed and Chart Reviewed Final Anesthetic Review Family History of Problems with Anesthesia: No History of Problems with Anesthesia: No NPO: Yes ASA Class: II Final Preanesthetic Review: No Changes in Pt Med Stat, Meds/Allgs Chart Reviewed, Consent Obtained/Reviewed and Anes Risks/Benef Reviewed Patient Risk: Intermediate Procedure Risk: Low Assessment/Block/Sedation in SS: Assess/Block/Sedation-SS Anesthetic Plan Anesthetic Plan: MAC: and TIVA Disposition: Standard PACU
[2023-12-21 14:16] VITALS: BP 98/49; PULSE 59; RESP 16; TEMP 36.1; O2SAT 96
--- NOTE | 2023-12-21 14:25 | PM.OP ---
Brief Operative Note Date of Service: 12/21/23 Pre-op diagnosis: Screening Post-op diagnosis: other (Polyps) Procedure: Colonoscopy to the cecum and TI with bx/removal of cecal polyp, and hot snare polypectomy x 2 in the AC and TC. Surgeon: Nav Lundberg MD Anesthesia: MAC Was an Electrical Laboratory Technician used for this Procedure?: No Estimated blood loss (mL): 2.0 Pathology: other (A. Cecal polyp B. Ascending colon polyp C. Transverse colon polyp) Condition: stable Disposition: PACU
[2023-12-21 14:31] VITALS: BP 137/66; PULSE 43; RESP 16; TEMP 36.1; O2SAT 96
[2023-12-21 14:45] VITALS: BP 144/71; PULSE 45; RESP 16; TEMP 36.4; O2SAT 98
--- NOTE | 2023-12-21 23:55 | OP_ITS ---
DATE OF SERVICE: 12/21/2023 SURGEON: Nav Lundberg MD INDICATIONS: The patient presents for followup of colorectal cancer screening and personal history of tubular adenoma of the colon. Full consent has been obtained from him for this, including risks of bleeding and perforation. PREOPERATIVE DIAGNOSIS: Colorectal cancer screening and personal history of tubular adenoma of the colon. POSTOPERATIVE DIAGNOSIS: PROCEDURE PERFORMED: Colonoscopy to the cecum and terminal ileum with biopsy and removal of polyp, and hot snare polypectomy x2. ESTIMATED BLOOD LOSS: COMPLICATIONS: ANESTHESIA: Monitored anesthesia care. ASSISTANTS: SPECIMENS: POSTOPERATIVE DIAGNOSES: Colorectal cancer screening and personal history of tubular adenoma of the colon, colon polyps, diverticulosis, internal hemorrhoids. DESCRIPTION OF PROCEDURE: The patient was placed in the left lateral decubitus position. The digital rectal exam revealed no abnormalities. There was no perianal disease. The Olympus video pediatric colonoscope was entered into the rectum and advanced easily to the cecum. Once in the cecum, I did identify cecal pouch with appendiceal orifice. The terminal ileum was cannulated for least 5 to 10 cm and appeared normal without any sign of active Crohn disease. The scope was withdrawn back in the colon. The ileocecal valve appeared normal. The entire cecum appeared normal other than a 3 mm polyp, which was biopsied and completely removed with a cold biopsy forceps. The appendiceal orifice appeared normal. The scope was then slowly withdrawn assessing all mucosal surfaces carefully. Preparation was excellent. In the ascending colon was an approximately 8 mm polyp, which was removed by hot snare polypectomy and recovered by suction. The polypectomy site appeared clean, without any sign of residual polyp nor bleeding. In the distal portion of the transverse colon was an approximately 8 to 10 mm polyp, which was removed in piecemeal fashion by hot snare polypectomy and recovered by suction. The polypectomy site appeared clean, without any sign of residual polyp nor bleeding. I did not visualize any other polyps, colitis, nor angiodysplasia. There was a mild amount of sigmoid diverticulosis. In the rectum, scope was retroflexed visualizing internal hemorrhoids, but no other pathology. The rectal mucosa appeared normal. The scope was straightened and withdrawn from the patient. He tolerated the procedure well and was returned to the recovery area in stable condition. IMPRESSION: 1. Colon polyps. 2. Diverticulosis. 3. Internal hemorrhoids. PLAN: The results of the pathology will be checked. Given these findings and his age, he most likely will not need any further screening colonoscopies. He will see me in 1 year for followup in regard to the underlying Crohn disease. He will continue his current regimen including the azathioprine and continue to have laboratories on a regular basis for that. He was advised to stay off all NSAIDs for 1 week. He was advised to resume his aspirin within 5 days as well. ADDENDUM: Of note, there were also 2 nonbleeding less than 5 mm angiodysplasias noted in the cecum. MD LANDRY Long/ANTOLIN / [id number] MTDD
== END 2023-12-21 15:19 | disposition home or self-care (01) ==
PROVIDERS: PCP Internal Medicine; Visit Provider Internal Medicine
PROC: 0DJD8ZZ Inspection of Lower Intestinal Tract, Via Natural or Artificial Opening Endoscopic (ICD-10-PCS; CPT 45378; principal; 2023-12-21 14:40)
DX: Z12.11 Encounter for screening for malignant neoplasm of colon (principal); Z86.010 Personal history of colon polyps; Z80.0 Family history of malignant neoplasm of digestive organs; D12.0 Benign neoplasm of cecum; D12.2 Benign neoplasm of ascending colon; D12.3 Benign neoplasm of transverse colon; K57.30 Diverticulosis of large intestine without perforation or abscess without bleeding; K64.8 Other hemorrhoids; K55.20 Angiodysplasia of colon without hemorrhage; K50.00 Crohn's disease of small intestine without complications; K21.9 Gastro-esophageal reflux disease without esophagitis; I10 Essential (primary) hypertension; E78.5 Hyperlipidemia, unspecified; Z85.46 Personal history of malignant neoplasm of prostate; Z79.624 Long term (current) use of inhibitors of nucleotide synthesis; Z79.899 Other long term (current) drug therapy; Z79.82 Long term (current) use of aspirin; Z87.891 Personal history of nicotine dependence
CPT/HCPCS: 45385; 45380; 88305; J2704

== ENCOUNTER 2023-12-27 08:32 | Outpatient (REF) | payer BC, SELFPAY ==
[2023-12-27 08:44] LABS: MANUAL DIFF FLAG NO
[2023-12-27 09:17] LABS: Basophils Percent Auto 0.3 % (0-2); Eosinophils Absolute Auto 0.1 X10*3/uL (0.0-0.4); Eosinophils Percent Auto 1.4 % (0-4); Hematocrit 42.9 % (42.0-52.0); Hemoglobin 14.7 g/dl (14.0-18.0); Imm Gran Abs Auto 0.02 X10*3/uL (0.00-0.03); Imm Gran Pct Auto 0.3 % (0.0-0.4); Lymphocytes Percent Auto 17.4 % (20-40); Mean Corpuscular HGB Conc 34.3 g/dl (31.0-36.0); Mean Corpuscular Hemoglobin 29.4 pg (27.0-33.0); Mean Corpuscular Volume 85.8 fL (80.0-98.0); Mean Platelet Volume 10.2 fL (9.4-12.4); Monocytes Absolute Auto 0.5 X10*3/uL (0.1-1.2); Monocytes Percent Auto 8.9 % (2-11); Neutrophils Absolute Auto 4.2 x10*3/uL (2.0-8.3); Neutrophils Percent Auto 71.7 % (45-73); Platelet Count 154 X10*3/uL (160-400); Red Cell Distribution Width 14.2 % (11.0-16.0); White Blood Count 5.8 X10*3/uL (4.8-10.8)
[2023-12-27 09:55] LABS: Alanine Aminotransferase 12 U/L (0-40); Albumin Level 4.1 g/dL (3.5-5.0); Alkaline Phosphatase 78 U/L (39-117); Anion Gap 7 (12-20); Aspartate Amino Transferase 12 U/L (5-37); Bilirubin Total 0.7 mg/dL (0.0-1.0); Blood Urea Nitrogen 11 mg/dL (9-16); Calcium 9.1 mg/dL (8.4-10.2); Carbon Dioxide 33 mmol/L (22-29); Chloride 108 mmol/L (96-108); Cholesterol 106 mg/dL (<200); Estimated Glomerular Filt Rate > 60; Glucose Fasting 118 mg/dL (60-99); HDL Cholesterol 41 mg/dL (>40); LDL Cholesterol Calculated 49 mg/dL (<100); Potassium 4.2 mmol/L (3.3-5.1); Sodium 144 mmol/L (135-145); Total Protein 6.5 g/dL (6.5-8.0); Triglycerides 80 mg/dL (<150)
[2023-12-27 10:13] LABS: Thyroid Stimulating Hormone 1.32 uIU/mL (0.32-4.0); Vitamin D 25-OH Total 31.3 ng/mL (>30)
== END 2023-12-27 08:33 | disposition home or self-care (01) ==
LOC: HO.LAB 08:32
PROVIDERS: PCP Internal Medicine; Visit Provider Internal Medicine
DX: Z00.00 Encounter for general adult medical examination without abnormal findings (principal); I10 Essential (primary) hypertension; K50.00 Crohn's disease of small intestine without complications; E55.9 Vitamin D deficiency, unspecified
CPT/HCPCS: 36415; 80053; 80061; 82306; 84443; 85025

== ENCOUNTER 2024-07-03 11:28 | Outpatient (REF) | payer OTHER, BC, SELFPAY ==
--- NOTE | ~2024-07-03 | MR_ITS ---
EXAMINATION: MR KNEE WITHOUT CONTRAST, LEFT CLINICAL INFORMATION: Knee pain COMPARISON: None available. TECHNIQUE: MRI of the knee without contrast was performed using routine sequences on a high-field scanner. FINDINGS: MENISCI: Medial Meniscus: Horizontal and undersurface tear in the body. Free edge and undersurface fraying/tearing of the inner third of the posterior horn. Lateral Meniscus: Anterior root degenerative fraying/tear. Posterior root and central posterior horn degenerative fraying/tear. Focal T2 signal in the inner third of the body extending to the undersurface, from possible tear. LIGAMENTS: Cruciate: Increased T2 signal ACL and the proximal/mid PCL could reflect mucoid degeneration or sprain/partial tear. Collateral: Mild MCL sprain. Intact LCL complex. EXTENSOR MECHANISM: Intact . Mild proximal patellar tendinosis. ARTICULAR CARTILAGE/BONE: Patellofemoral Compartment: No significant chondral loss. Medial Compartment: Chondral thinning and patchy fissuring in the weightbearing compartment. Lateral Compartment: Posterior tibial chondral thinning and fissuring. JOINT FLUID AND BURSAE: Small-moderate effusion. Moderate mildly complex Tripp's cyst. Proximal gastrocnemius muscle edema, perhaps strain. MR/MR knee LT wo con IMPRESSION: 1. Tear of the body and posterior horn of the medial meniscus. 2. Tear of the anterior root, posterior root and central posterior horn of the lateral meniscus. Possible tear in the body. 3. Mucoid degeneration versus sprain/partial tear of the ACL and PCL. 4. Mild MCL sprain. 5. Mild proximal patellar tendinosis. 6. Mild medial and lateral compartment arthritis. 7. Small-moderate effusion. Moderate mildly complex Tripp's cyst. 8. Proximal gastrocnemius muscle edema, perhaps strain. Electronically signed by: Dandre Nunez MD 07/20/2024 07:14 PM [facility]
== END 2024-07-03 11:29 | disposition home or self-care (01) ==
LOC: HO.MRI 11:28
PROVIDERS: PCP Internal Medicine; Visit Provider Nurse Practitioner Family
DX: M25.562 Pain in left knee (principal)
CPT/HCPCS: 73721

== ENCOUNTER 2024-10-03 11:28 | Outpatient (REF) | payer OTHER, SELFPAY ==
[2024-10-03 11:44] LABS: MANUAL DIFF FLAG NO
[2024-10-03 11:59] LABS: Basophils Percent Auto 0.2 % (0-2); Eosinophils Absolute Auto 0.1 X10*3/uL (0.0-0.4); Eosinophils Percent Auto 1.6 % (0-4); Hematocrit 42.1 % (42.0-52.0); Hemoglobin 14.6 g/dl (14.0-18.0); Imm Gran Abs Auto 0.01 X10*3/uL (0.00-0.03); Imm Gran Pct Auto 0.2 % (0.0-0.4); Lymphocytes Percent Auto 19.3 % (20-40); Mean Corpuscular HGB Conc 34.7 g/dl (31.0-36.0); Mean Corpuscular Hemoglobin 29.6 pg (27.0-33.0); Mean Corpuscular Volume 85.2 fL (80.0-98.0); Mean Platelet Volume 9.8 fL (9.4-12.4); Monocytes Absolute Auto 0.3 X10*3/uL (0.1-1.2); Monocytes Percent Auto 6.8 % (2-11); Neutrophils Absolute Auto 3.6 x10*3/uL (2.0-8.3); Neutrophils Percent Auto 71.9 % (45-73); Platelet Count 151 X10*3/uL (160-400); Red Blood Count 4.94 X10*6/uL (4.60-5.80); Red Cell Distribution Width 13.8 % (11.0-16.0)
--- OUTSIDE RECORDS SUMMARY | 2024-10-03 12:14 | XMS_ITS | Continuity of Care Document ---
Author Name [facility] Organization [facility] Care Team Providers Care Economic Analysis Director Name Role Phone [facility] Unavailable Unavailable Problems Combined list of problems from Department of Defense and Veterans Affairs facilities. It does not include entries that were removed or entered in error. Problem Status Onset Date Problem Type Date of Resolution Comments Source Crohn Disease Active 1968 Condition [facility] Actinic keratosis Active Condition [facility] Anxiety (SNOMED CT 16551454) Active Condition Nov 14, 2012 Entered By: DONTAE CANAS Comment: Reviewed [facility] Arthritis * (ICD-9-CM 716.90) Active Condition Nov 29 17 Entered By: JONATHAN GARZA Comment: partial R knee replacement 07/19 [facility] B12 injections started (SNOMED CT 424647585) Active Condition [facility] Basal cell carcinoma of skin Active Condition Apr 02 15 Entered By: JONATHAN GARZA Comment: 03/2015 note - follows w Dr. Morris, periodic excisionsSep 2016 Entered By: JONATHAN GARZA Comment: excision from L arm 2016 [facility] Benign essential hypertension (SNOMED CT 1362687) Active Condition Apr 19, 2007 Entered By: SANJAY CASTELLANOS Comment: polyuria from HCTZ. [facility] Concussion injury of brain (SNOMED CT 813197950) Active Condition January 11, 2015 Entered By: EZEQUIEL RIGGS Comment: OCT 2013 [facility] Contracture Of Tendon Active Condition [facility] Exposure to potentially hazardous substance (SCT 131266928723616) Active Condition Dec 11 4 Entered By: MARGARET SOARES Comment: Entered automatically through ANNA Problem List documentation program [facility] Family History of Malignant Neoplasm of Gastrointestinal Tract Active Condition Aug 28, 2009 Entered By: EZEQUIEL RIGGS Comment: colon cancer [facility] Gastroesophageal reflux disease (SNOMED CT 609691989) Active Condition [facility] Headache Active Condition [facility] Hearing loss (SNOMED CT 86713440) Active Condition Nov 29, 2016 Entered By: JONATHAN GARZA Comment: using hearing aid 2016 [facility] HEMORRHOIDS Active Condition [facility] Hypertriglyceridem ia Active Condition [facility] 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 Condition [facility] Laceration of finger of left hand Active Condition Jul 22, 2019 Entered By: ALINA FERGUSON Comment: update [facility] Onychomycosis of toenails Active Condition [facility] Osteoarthritis * (ICD-9-CM 715.90) Active Condition Aug 14 11 Entered By: JENELLE STEEN Comment: Hands [facility] 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 Condition Aug 14 Entered By: JENELLE STEEN Comment: 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 [facility] Posttraumatic stress disorder, delayed onset (SNOMED CT 837154048) Active Condition Oct 09, 2005 Entered By: DONTAE CANAS Comment: ReviewedDec 04, 2008 Entered By: DONTAE CANAS Comment: ReviewedDec 17, 2009 Entered By: DONTAE CANAS Comment: 2010 Entered By: DONTAE CANAS Comment: ReviewedNov 14, 2012 Entered By: DONTAE CANAS Comment: ReviewedJun 26, 2016 Entered By: DONTAE CANAS Comment: Reviewed [facility] Prostate cancer (SNOMED CT 117014791) Active Condition January 11, 2015 Entered By: EZEQUIEL RIGGS Comment: dxd about 2012 [facility] PSORIASIS Active Condition [facility] Spinal stenosis of lumbar region Active Condition May 28, 2017 Entered By: JONATHAN GARZA Comment: central canal and foraminal, most severe lower lumbar spineNov 2016 Entered By: JONATHAN GARZA Comment: MRI 05/20 [facility] 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 Active Condition [facility] Traumatic brain injury Active Condition [facility] Upper Respiratory Infections (ICD-9-CM 465.9) Active Condition [facility] Dysfunction of Eustachian tube (ICD-9-CM 381.81) Inactive Condition 08/05/2009 [facility] TINNITUS, OBJECTIVE Inactive Condition 11/26/2009 [facility] Diagnosis: ICD-10-CM M25.562 Pain in left knee Active Diagnosis [facility] Diagnosis: ICD-10-CM F43.12 Post-traumatic stress disorder, chronic Active Diagnosis [facility] Diagnosis: ICD-10-CM Z71.89 Other specified counseling Active Diagnosis [facility] Diagnosis: ICD-10-CM B35.1 Tinea unguium Active Diagnosis [facility] Diagnosis: ICD-10-CM K03.6 Deposits [accretions] on teeth Active Diagnosis [facility] Diagnosis: ICD-10-CM M54.50 Low back pain, unspecified Active Diagnosis [facility] Diagnosis: ICD-10-CM D51.0 Vitamin B12 defic anemia due to intrinsic factor deficiency Active Diagnosis [facility] Diagnosis: ICD-10-CM K08.9 Disorder of teeth and supporting structures, unspecified Active Diagnosis [facility] Diagnosis: ICD-10-CM C44.721 Squamous cell carcinoma skin/ unsp lower limb, including hip Active Diagnosis [facility] Diagnosis: ICD-10-CM Z46.0 Encounter for fit/adjst of spectacles and contact lenses Active Diagnosis [facility] Diagnosis: ICD-10-CM H40.1131 Primary open-angle glaucoma, bilateral, mild stage Active Diagnosis [facility] Diagnosis: ICD-10-CM M48.07 Spinal stenosis, lumbosacral region Active Diagnosis [facility] Diagnosis: ICD-10-CM G62.9 Polyneuropathy, unspecified Active Diagnosis [facility] Diagnosis: ICD-10-CM E53.8 Deficiency of other specified B group vitamins Active Diagnosis [facility] Diagnosis: ICD-10-CM M54.6 Pain in thoracic spine Active Diagnosis [facility] Diagnosis: ICD-10-CM R51.9 Headache, unspecified Active Diagnosis [facility] Diagnosis: ICD-10-CM M79.671 Pain in right foot Active Diagnosis [facility] Medications Combined list of outpatient medications from Department of Defense and Veterans Affairs facilities.Medications provided include 1) outpatient medications from the last 15 months, and 2) patient-reported medications. Medication Details Route Status Patient Instructions Prescription Expires Prescription Number Last Dispense Date Ordering Provider Order Date Order Qty Source AMLODIPINE BESYLATE 10MG TAB TAKE ONE TABLET BY MOUTH ONCE DAILY FOR BLOOD PRESSURE /HEART, DO NOT TAKE WITH GRAPEFRU IT JUICE ORAL ACTIVE 11/19/2024 [id number] 4 SANJAY CLAY 2023 90 [facility] AMLODIPINE BESYLATE 10MG TAB TAKE ONE TABLET BY MOUTH ONCE DAILY FOR BLOOD PRESSURE /HEART, DO NOT TAKE WITH GRAPEFRU IT JUICE ORAL DISCONT INUED 02/24/2024 [id number] RA XOCHILT AGLVIN 2022 90 [facility] AMOXICILLIN TRIHYDRATE 500MG CAP TAKE FOUR CAPSULES BY MOUTH ONE TIME FOR DENTAL PREMEDIC ATION 1 HOUR PRIOR TO DENTAL APPOINTM ENT ORAL ACTIVE 10/26/2024 [id number] TOBI BRIGHT 2024 20 [facility] AMOXICILLIN TRIHYDRATE 500MG CAP TAKE FOUR CAPSULES BY MOUTH DIRECTED FOR DENTAL PREMEDIC ATION ORAL DISCONT INUED 05/14/2024 [id number] SANJAY CLAY 2023 4 [facility] AMOXICILLIN TRIHYDRATE 500MG CAP TAKE FOUR CAPSULES BY MOUTH ONE TIME PRIOR TO APPOINTM ENT ORAL 05/24/2024 [id number] TOBI BRIGHT 2023 20 [facility] ASPIRIN 81MG TAB,EC TAKE ONE TABLET BY MOUTH DAILY ORAL ACTIVE APOLONIA RIGGS S [facility] ATORVASTATI N CA 80MG TAB TAKE ONE-HALF TABLET BY MOUTH DAILY FOR CHOLESTE ROL ORAL ACTIVE 08/27/2025 [id number] 4 RA XOCHILT GALVIN 2023 45 [place] ATORVASTATI N [place] 80MG TAB TAKE ONE-HALF TABLET BY MOUTH DAILY FOR CHOLESTE ROL ORAL DISCONT INUED 08/23/2024 [id number] 4 SANJAY CLAY 2022 45 [facility] ATROPINE SO4 0.025MG/DIP HENOXYLATE HCL 2.5MG TAB TAKE 1 TABLET BY MOUTH EVERY 6 HOURS NEEDED FOR DIARRHEA MAY TAKE 1-2 TABLETS* * ORAL SUSPEND ED 11/27/2024 [id number] 5 SANJAY CLAY 2023 180 [facility] ATROPINE SO4 0.025MG/DIP HENOXYLATE HCL 2.5MG TAB TAKE 1 TABLET BY MOUTH DIRECTED FOR DIARRHEA TO PREVENT DIARRHEA ORAL 05/21/2024 [id number] 4 SANJAY CLAY 2023 180 [facility] ATROPINE SO4 0.025MG/DIP HENOXYLATE HCL 2.5MG TAB TAKE ONE TABLET BY MOUTH PRN ORAL ACTIVE APOLONIA RIGGS NN S 2009 [facility] CHOLECALCIF QUENTIN 25MCG (1,000UNIT) TAB TAKE ONE TABLET BY MOUTH ONCE DAILY FOR VITAMIN SUPPLEME NTATION ORAL 08/23/2024 [id number] 4 SANJAY CLAY 2022 90 [facility] CYANOCOBALA MIN 1000MCG/ML INJ INJECT 1ML (1000 MCG) INTRAMUS CULARLY EVERY MONTH FOR PREVENTI ON OF VITAMIN B12 DEFICIEN CY INTRAM USCULA R ACTIVE 05/16/2025 [id number] 4 SANJAY CLAY 2023 1 [facility] CYANOCOBALA MIN 1000MCG/ML INJ INJECT 1ML (1000 MCG) INTRAMUS CULARLY EVERY MONTH FOR PREVENTI ON OF VITAMIN B12 DEFICIEN CY INTRAM USCULA R DISCONT INUED 03/11/2025 [id number] SANJAY CLAY 2023 1 [facility] FINASTERIDE 5MG TAB TAKE ONE TABLET BY MOUTH ONCE DAILY FOR ENLARGED PROSTATE ORAL ACTIVE 05/28/2025 [id number] 4 SANJAY CLAY 2023 90 [facility] FINASTERIDE 5MG TAB TAKE ONE TABLET BY MOUTH ONCE DAILY FOR ENLARGED PROSTATE ORAL DISCONT INUED 02/13/2024 [id number] 4 SANJAY CLAY 2022 90 [facility] FISH OIL 1000MG (500MG DHA/EPA) CAP,ORAL TAKE 2 CAPSULES BY MOUTH ONCE DAILY ORAL ACTIVE ALINA FERGUSON 2019 [facility] FOLIC ACID 1MG TAB TAKE ONE TABLET BY MOUTH DAILY VITAMIN/ NUTRITIO N SUPPLEME NT ORAL ACTIVE 04/15/2025 [id number] 4 SANJAY CLAY 2023 90 [facility] FOLIC ACID 1MG TAB TAKE ONE TABLET BY MOUTH DAILY VITAMIN/ NUTRITIO N SUPPLEME NT ORAL DISCONT INUED 08/23/2024 [id number] 4 SANJAY CLAY 2022 90 [facility] LATANOPROST 0.005% SOLN,OPH INSTILL 1 DROP INTO EACH EYE AT BEDTIME TO REDUCE PRESSURE IN THE EYE OPHTHA LMIC ACTIVE 12/20/2024 [id number] 5 Analisa WATKINS NDREW E 2023 7.5 [facility] LATANOPROST 0.005% SOLN,OPH INSTILL 1 DROP INTO EACH EYE AT BEDTIME TO REDUCE PRESSURE IN THE EYE OPHTHA LMIC DISCONT INUED 08/08/2024 [id number] 3 Analisa WATKINS NDREW E 2022 12.5 [facility] LISINOPRIL 20MG TAB TAKE ONE TABLET BY MOUTH DAILY TO CONTROL BLOOD PRESSURE ORAL ACTIVE 04/15/2025 [id number] 5 SANJAY CLAY 2023 90 [facility] LISINOPRIL 20MG TAB TAKE ONE TABLET BY MOUTH DAILY TO CONTROL BLOOD PRESSURE ORAL DISCONT INUED 08/23/2024 [id number] 4 SANJAY CLAY 2022 90 [facility] OMEPRAZOLE 20MG CAP,EC TAKE ONE CAPSULE BY MOUTH EVERY MORNING 30 MINUTES BEFORE BREAKFAS T NEEDED FOR STOMACH ACID ORAL 09/04/2024 [id number] SANJAY CLAY 2023 90 [facility] OTHER CAP/TAB AZATHIOP RINE 75MG TWICE DAILY ACTIVE APOLONIA RIGGS 2009 [facility] PROBIOTIC COMBINATION CAP/TAB TAKE 1 CAPSULE BY MOUTH ONCE DAILY ORAL ACTIVE Foster HELTON 2022 [facility] SERTRALINE HCL 100MG TAB TAKE ONE-HALF TABLET BY MOUTH EVERY MORNING FOR POSTTRAU MATIC STRESS SYNDROME ORAL ACTIVE 12/24/2024 [id number] Foster HELTON 2024 45 [facility] SERTRALINE HCL 100MG TAB TAKE ONE-HALF TABLET BY MOUTH EVERY MORNING FOR PTSD ORAL 07/23/2024 [id number] 4 Foster HELTON 2022 45 [facility] TAMSULOSIN HCL 0.4MG CAP TAKE ONE CAPSULE BY MOUTH AT BEDTIME FOR ENLARGED PROSTATE ORAL ACTIVE 04/15/2025 [id number] 4 SANJAY CLAY 2023 90 [facility] TAMSULOSIN HCL 0.4MG CAP TAKE ONE CAPSULE BY MOUTH AT BEDTIME FOR ENLARGED PROSTATE ORAL DISCONT INUED 05/23/2024 [id number] 4 SANJAY CLAY 2022 30 [facility] THIAMINE 100MG TAB TAKE TWO TABLETS BY MOUTH ONCE DAILY FOR VITAMIN SUPPLEME NTATION ORAL ACTIVE 11/28/2024 [id number] 4 SANJAY CLAY 2023 200 [facility] Immunizations Combined list of available immunizations from the Department of Defense and Veterans Affairs facilities. Immunization Series Date Given Administered By Site Reaction Lot Number CVX Code Drug Tableau Lead Status Comments Source INFLUENZA, HIGH-DOSE, TRIVALENT, PF 2023 SERAFINFELA JANINA RIGHT DELTO ID [id number] 135 complet ed [facility] COVID-19 (MODERNA), MRNA, LNP-S, PF, 50 MCG/0.5 ML (AGES 12+ YEARS) 2023 SERAFINFELA JANINA RIGHT DELTO ID [id number] 312 complet ed [facility] COVID-19 (MODERNA), MRNA, LNP-S, PF, 50 MCG/0.5 ML (AGES 12+ YEARS) 1 2022 FELA BETANCOURT RIGHT DELTO ID [id number] 312 complet ed [facility] INFLUENZA, HIGH-DOSE, QUADRIVALENT 2022 FELA BETANCOURT JANINA RIGHT DELTO ID [id number] 197 complet ed [facility] COVID-19 (MODERNA), MRNA, LNP-S, BIVALENT BOOSTER, PF, 50 MCG/0.5 ML OR 25MCG/0.25 ML DOSE 1 2021 229 complet ed MOD; [id number]; 3 [facility] INFLUENZA VACCINE, QUADRIVALENT, ADJUVANTED 2021 205 complet ed [facility] COVID-19 (MODERNA), MRNA, LNP-S, PF, 100 MCG/0.5ML DOSE OR 50 MCG/0.25ML DOSE 4 2021 207 complet ed MOD; [id number]; 2 [facility] TDAP 2021 115 complet ed [facility] COVID-19 (MODERNA), MRNA, LNP-S, PF, 100 MCG OR 50 MCG DOSE 3 2020 207 complet ed MOD [id number] [facility] INFLUENZA VACCINE, QUADRIVALENT, ADJUVANTED 2020 205 complet ed [facility] COVID-19 (MODERNA), MRNA, LNP-S, PF, 100 MCG/0.5 ML DOSE 2 2020 207 complet ed MOD; [id number]; 1 [facility] COVID-19 (MODERNA), MRNA, LNP-S, PF, 100 MCG/0.5 ML DOSE 1 2020 207 complet ed MOD; [id number]; 1 [facility] INFLUENZA, INJECTABLE, QUADRIVALENT, PRESERVATIVE FREE 2019 150 complet ed Site: Left Deltoid [facility] INFLUENZA, INJECTABLE, QUADRIVALENT, PRESERVATIVE FREE 2018 150 complet ed Site: Left Deltoid [facility] ZOSTER RECOMBINANT 1 2018 187 complet ed [facility] INFLUENZA, SEASONAL, INJECTABLE 2017 141 complet ed Site: Left Deltoid [facility] FLU,3 YRS (HISTORICAL) 2016 88 complet ed Site: Left Deltoid [facility] ZOSTER (HISTORICAL) 2016 121 complet ed [facility] FLU,3 YRS (HISTORICAL) 2015 88 complet ed Site: Left Deltoid [facility] PNEUMOCOCCAL CONJUGATE PCV 13 2015 133 complet ed [facility] FLU,3 YRS (HISTORICAL) 2014 88 complet ed Site: Left Deltoid [facility] PNEUMOCOCCAL POLYSACCHARID E PPV23 2013 33 complet ed [facility] FLU,3 YRS (HISTORICAL) 2013 88 complet ed Site: Left Deltoid [facility] FLU,3 YRS (HISTORICAL) 2012 88 complet ed Site: Left Deltoid [facility] TD(ADULT) UNSPECIFIED FORMULATION 2012 139 complet ed Site: Right Deltoid [facility] TD(ADULT) UNSPECIFIED FORMULATION 2012 139 complet ed doccument ed in records [facility] FLU,3 YRS (HISTORICAL) 2011 88 complet ed Site: Left Deltoid [facility] FLU,3 YRS (HISTORICAL) 2010 88 complet ed Site: Right Deltoid [facility] FLU,3 YRS (HISTORICAL) 2009 88 complet ed Site: Left Deltoid [facility] NOVEL INFLUENZA-H1N 09-11, ALL FORMULATIONS 2008 128 complet ed [employer] [facility] FLU,3 YRS (HISTORICAL) 2008 88 complet ed Site: Left Deltoid [facility] FLU,3 YRS (HISTORICAL) 2004 EMMETT JALLOH 88 complet ed [facility] TD(ADULT) UNSPECIFIED FORMULATION 2002 139 complet ed [facility] TDAP 2002 115 complet ed [facility] Results Combined list of recent chemistry, hematology and other laboratory results from Department of Defense and Veterans Affairs, ranging from 15 months to all on record, depending upon the facility. Order Name Results Value Reference Range Date Interpretation Specimen Comments Source PSA PROSTATE SPECIFIC AG [MASS/VOLUM E] IN SERUM OR PLASMA 1.91 ng/mL 0.00 - 4.00 05/28 Specimen Type: SERUM No comment entered. Ordering Provider: ESTHER CLAY Report Released Date/Time: May 28, 2024 02:59 PM Reporting [facility] [place] [facility] [address] [address] Performing Lab: [facility] [place] [facility] [address] [address] [facility] TSH THYROTROPIN [UNITS/VOLU ME] IN SERUM OR PLASMA 1.33 u[IU]/ mL 0.35 - 5.00 05/28 Specimen Type: SERUM No comment entered. Ordering Provider: ESTHER CLYA Report Released Date/Time: May 28, 2024 02:59 PM Reporting Lab: [facility] [place] [facility] [address] [address] Performing Lab: [facility] [place] [facility] [address] [address] [facility] VITAMIN B12 COBALAMIN (VITAMIN B12) [MASS/VOLUM E] IN SERUM OR PLASMA 412 pg/mL 200 - 900 05/28 Specimen Type: SERUM No comment entered. Ordering Provider: ESTHER CLAY Report Released Date/Time: May 28, 2024 03:13 PM Reporting Lab: [facility] [place] [facility] [address] [address] Performing Lab: [facility] [place] [facility] [address] [address] [facility] LIPID PANEL, NON FASTING CHOLESTEROL [MASS/VOLUM E] IN SERUM OR PLASMA 104 mg/dL 05/28 Specimen Type: SERUM No comment entered. Ordering Provider: ESTHER CLAY Report Released Date/Time: May 28, 2024 02:59 PM Reporting Lab: [facility] [place] [facility] [address] [address] Performing Lab: [facility] [place] [facility] [address] [address] [facility] [facility] LIPID PANEL, NON FASTING TRIGLYCERID E [MASS/VOLUM E] IN SERUM OR PLASMA 81 mg/dL 0 - 150 05/28 Specimen Type: SERUM No comment entered. Ordering Provider: ESTHER CLAY Report Released Date/Time: May 28, 2024 02:59 PM Reporting Lab: [facility] [place] [facility] [address] [address] Performing Lab: [facility] [place] [facility] [address] [address] [facility] [place] [facility] LIPID PANEL, NON FASTING CHOLESTEROL IN LDL [MASS/VOLUM E] IN SERUM OR PLASMA BY CALCULATION 47 mg/dL 0 - 129 05/28 Specimen Type: SERUM No comment entered. Ordering Provider: ESTHER CLAY Report Released Date/Time: May 28, 2024 02:59 PM Reporting Lab: [facility] [place] [facility] [address] [address] Performing Lab: [facility] [place] [facility] [address] [address] [facility] [place] [facility] LIPID PANEL, NON FASTING CHOLESTEROL .TOTAL/CHOL ESTEROL IN HDL [MASS RATIO] IN SERUM OR PLASMA 2.5 05/28 Specimen Type: SERUM No comment entered. Ordering Provider: ESTHER CLAY Report Released Date/Time: May 28, 2024 02:59 PM Reporting Lab: [facility] [address] [address] Performing Lab: [facility] [address] [address] [facility]USE [facility] LIPID PANEL, NON FASTING CHOLESTEROL IN HDL [MASS/VOLUM E] IN SERUM OR PLASMA 41 mg/dL 40 - 60 05/28 Specimen Type: SERUM No comment entered. Ordering Provider: ESTHER CLAY Report Released Date/Time: May 28, 2024 02:59 PM Reporting Lab: [facility]ERN [facility]ENTERUSE[address] [address] Performing Lab: [facility]ENTERN [facility]USE[address] [address] [facility]ENTERN [facility] LIVER FUNCTION PROTEIN [MASS/VOLUM E] IN SERUM OR PLASMA 6.0 g/dL 6.0 - 8.3 05/28 Specimen Type: SERUM No comment entered. Ordering Provider: ESTHER CLAY Report Released Date/Time: May 28, 2024 02:59 PM Reporting Lab: [facility]TRN [facility]ENTERUSETS [address] [address] Performing Lab: [facility]ENTERUSETS [address] [address] [facility]USE [facility] LIVER FUNCTION ALBUMIN [MASS/VOLUM E] IN SERUM OR PLASMA 3.6 g/dL 3.5 - 5.0 05/28 Specimen Type: SERUM No comment entered. Ordering Provider: ESTHER CLAY Report Released Date/Time: May 28, 2024 02:59 PM Reporting Lab: [facility]TRN [facility]ENTER[facility] [address] Performing Lab: [facility]ENTERUSE[address] [address] [facility] LIVER FUNCTION ALKALINE PHOSPHATASE [ENZYMATIC ACTIVITY/VO LUME] IN SERUM OR PLASMA 71 U/L 40 - 150 05/28 Specimen Type: SERUM No comment entered. Ordering Provider: ESTHER CLAY Report Released Date/Time: May 28, 2024 02:59 PM Reporting Lab: [facility] [place] [facility] [address] [facility] [address] Performing Lab: [facility] [place] [facility] [address] [facility] [address] [facility] LIVER FUNCTION ASPARTATE AMINOTRANSF ERASE [ENZYMATIC ACTIVITY/VO LUME] IN SERUM OR PLASMA 14 U/L 5 - 34 05/28 Specimen Type: SERUM No comment entered. Ordering Provider: ESTHER CLAY Report Released Date/Time: May 28, 2024 02:59 PM Reporting Lab: [facility] [place] [facility] [address] [facility] [address] Performing Lab: [facility] [place] [address] [address] [facility] [place] [facility] LIVER FUNCTION ALANINE AMINOTRANSF ERASE [ENZYMATIC ACTIVITY/VO LUME] IN SERUM OR PLASMA 13 U/L 05/28 Specimen Type: SERUM No comment entered. Ordering Provider: ESTHER CLAY Report Released Date/Time: May 28, 2024 02:59 PM Reporting Lab: [facility] [place] [facility] [address] [facility] [facility] [address] Performing Lab: [facility] [place] [address] [address] [facility] [place] [facility] LIVER FUNCTION BILIRUBIN.T OTAL [MASS/VOLUM E] IN SERUM OR PLASMA 0.9 mg/dL 0.2 - 1.2 05/28 Specimen Type: SERUM No comment entered. Ordering Provider: ESTHER CLAY Report Released Date/Time: May 28, 2024 02:59 PM Reporting Lab: [facility] [place] [facility] [address] [facility] [facility] [address] Performing Lab: [address] [address] [facility] HEMOGLOBI N A1C PANEL HEMOGLOBIN A1C/HEMOGLO BIN.TOTAL IN BLOOD BY HPLC 5.2 4.0 - 5.6 05/28 Specimen Type: BLOOD Comment: Values obtained from A1C measurement s can vary. For atypical A1C assays, a reported value of 7.0 could actually be between 6.72 and 7.28 if measured by a reference method. A reported value of 9.0 could actually be between 8.73 and 9.27. Ref: [email or web address] Ordering Provider: ESTHER CLAY Report Released Date/Time: May 28, 2024 02:59 PM Reporting Lab: [address] [address] Performing Lab: [address] [address] [facility] BASIC METABOLIC PANEL (non-fast ing) UREA NITROGEN [MASS/VOLUM E] IN SERUM OR PLASMA 11 mg/dL - 05/28 Specimen Type: SERUM No comment entered. Ordering Provider: ESTHER CLAY Report Released Date/Time: May 28, 2024 02:59 PM Reporting Lab: [address] [address] Performing Lab: [address] [address] [facility] BASIC METABOLIC PANEL (non-fast ing) GLUCOSE [MASS/VOLUM E] IN SERUM OR PLASMA 90 mg/dL 65 - 100 05/28 Specimen Type: SERUM No comment entered. Ordering Provider: ESTHER CLAY Report Released Date/Time: May 28, 2024 02:59 PM Reporting Lab: [address] [address] Performing Lab: [place] [address] [facility] [address] [facility] BASIC METABOLIC PANEL (non-fast ing) SODIUM [MOLES/VOLU ME] IN SERUM OR PLASMA 143 mmol/L 135 - 145 05/28 Specimen Type: SERUM No comment entered. Ordering Provider: ESTHER CLAY Report Released Date/Time: May 28, 2024 02:59 PM Reporting Lab: [facility] [address] [facility] [address] Performing Lab: [facility] [address] [facility] [address] [facility] BASIC METABOLIC PANEL (non-fast ing) POTASSIUM [MOLES/VOLU ME] IN SERUM OR PLASMA 3.8 mmol/L 3.5 - 5.0 05/28 Specimen Type: SERUM No comment entered. Ordering Provider: ESTHER CLAY Report Released Date/Time: May 28, 2024 02:59 PM Reporting Lab: [facility] [address] [facility] [address] Performing Lab: [facility]ENTERUSE[address] [address] [facility] BASIC METABOLIC PANEL (non-fast ing) CHLORIDE [MOLES/VOLU ME] IN SERUM OR PLASMA 107 mmol/L 100 - 110 05/28 Specimen Type: SERUM No comment entered. Ordering Provider: ESTHER CLAY Report Released Date/Time: May 28, 2024 02:59 PM Reporting Lab: [facility]RR[facility]ENTERTRN [facility]ENTERUSE[address] [address] Performing Lab: [facility]ERN [facility] [address] [facility] [address] [facility] BASIC METABOLIC PANEL (non-fast ing) CARBON DIOXIDE, TOTAL [MOLES/VOLU ME] IN SERUM OR PLASMA 29 meq/L 20 - 30 05/28 Specimen Type: SERUM No comment entered. Ordering Provider: ESTHER CLAY Report Released Date/Time: May 28, 2024 02:59 PM Reporting Lab: [facility] [facility] [address] [facility] [address] Performing Lab: [facility] [facility] [address] [facility] [address] [facility] BASIC METABOLIC PANEL (non-fast ing) CREATININE [MASS/VOLUM E] IN SERUM OR PLASMA 0.85 mg/dL 0.50 - 1.40 05/28 Specimen Type: SERUM No comment entered. Ordering Provider: ESTHER CLAY Report Released Date/Time: May 28, 2024 02:59 PM Reporting Lab: [facility] [place] [facility] [address] [facility] [address] Performing Lab: [facility] [place] [facility] [address] [facility] [address] [facility] BASIC METABOLIC PANEL (non-fast ing) GLOMERULAR FILTRATION RATE/1.73 SQ M.PREDICTED [VOLUME RATE/AREA] IN SERUM, PLASMA OR BLOOD BY CREATININE- BASED FORMULA (CKD-EPI 2020) >90mL/ min 60 05/28 Specimen Type: SERUM No comment entered. Ordering Provider: ESTHER CLAY Report Released Date/Time: May 28, 2024 02:59 PM Reporting Lab: [facility] [place] [facility] [address] [facility] [address] Performing Lab: [facility] [place] [facility] [address] [facility] [address] [facility] CBC LEUKOCYTES [#/VOLUME] IN BLOOD BY AUTOMATED COUNT 5.01 10*3/u L 4.50 - 11.00 05/28 Specimen Type: BLOOD No comment entered. Ordering Provider: ESTHER CLAY Report Released Date/Time: May 28, 2024 02:59 PM Reporting Lab: [facility] [place] [facility] [address] [facility] [address] Performing Lab: [facility] [place] [address] [address] [facility] CBC ERYTHROCYTE S [#/VOLUME] IN BLOOD BY AUTOMATED COUNT 4.64 10*6/u L 4.23 - 5.66 05/28 Specimen Type: BLOOD No comment entered. Ordering Provider: ESTHER CLAY Report Released Date/Time: May 28, 2024 02:59 PM Reporting Lab: [facility] [place] [facility] [address] [facility] [address] Performing Lab: [facility] [place] [facility] [address] [facility] [address] [facility] CBC HEMOGLOBIN [MASS/VOLUM E] IN BLOOD 13.6 g/dL 12.8 - 17 05/28 Specimen Type: BLOOD No comment entered. Ordering Provider: ESTHER CLAY Report Released Date/Time: May 28, 2024 02:59 PM Reporting Lab: [facility] [place] [facility] [address] [facility] [address] Performing Lab: [facility] [place] [facility] [address] [facility] [address] [facility] CBC HEMATOCRIT [VOLUME FRACTION] OF BLOOD BY AUTOMATED COUNT 39.9 39.2 - 50.4 05/28 Specimen Type: BLOOD No comment entered. Ordering Provider: ESTHER CLAY Report Released Date/Time: May 28, 2024 02:59 PM Reporting Lab: [facility] [place] [facility] [address] [facility] [address] Performing Lab: [facility] [place] [facility] [address] [facility] [address] [facility] CBC MCV [ENTITIC VOLUME] BY AUTOMATED COUNT 86.0 fL 82 - 99 05/28 Specimen Type: BLOOD No comment entered. Ordering Provider: ESTHER CLAY Report Released Date/Time: May 28, 2024 02:59 PM Reporting Lab: [facility] [place] [address] [address] Performing Lab: [facility] [place] [facility] [address] [facility] [address] [facility] CBC MCHC [MASS/VOLUM E] BY AUTOMATED COUNT 34.1 g/dL 30.8 - 35.1 05/28 Specimen Type: BLOOD No comment entered. Ordering Provider: ESTHER CLAY Report Released Date/Time: May 28, 2024 02:59 PM Reporting Lab: [facility] [place] [facility] [address] [facility] [address] Performing Lab: [facility] [place] [facility] [address] [facility] [address] [facility] CBC PLATELETS [#/VOLUME] IN BLOOD BY AUTOMATED COUNT 149 10*3/u L 140 - 360 05/28 Specimen Type: BLOOD No comment entered. Ordering Provider: ESTHER CLAY Report Released Date/Time: May 28, 2024 02:59 PM Reporting Lab: [facility] [place] [facility] [address] [facility] [address] Performing Lab: [facility] [place] [address] [address] [facility] CBC ERYTHROCYTE DISTRIBUTIO N WIDTH [RATIO] BY AUTOMATED COUNT 14.0 12.0 - 16.0 05/28 Specimen Type: BLOOD No comment entered. Ordering Provider: ESTHER CLAY Report Released Date/Time: May 28, 2024 02:59 PM Reporting Lab: [facility] [place] [facility] [address] [facility] [address] Performing Lab: [facility] [place] [facility] [address] [facility] [address] [facility] CBC MCH [ENTITIC MASS] BY AUTOMATED COUNT 29.3 pg 26.2 - 32.6 05/28 Specimen Type: BLOOD No comment entered. Ordering Provider: ESTHER CLAY Report Released Date/Time: May 28, 2024 02:59 PM Reporting Lab: [facility] [place] [facility] [address] [facility] [address] Performing Lab: [facility] [address] [facility] [address] [facility] THYROID T4 FREE(FT4) THYROXINE (T4) FREE [MASS/VOLUM E] IN SERUM OR PLASMA 0.92 ng/dL 0.6 - 1.6 08/09 Specimen Type: SERUM No comment entered. Ordering Provider: ESTHER CLAY Report Released Date/Time: Aug 01, 2023 08:30 AM Reporting Lab: [facility] [place] [facility] [address] [facility] [address] Performing Lab: [facility] [place] [facility] [address] [facility] [address] [facility] TSH THYROTROPIN [UNITS/VOLU ME] IN SERUM OR PLASMA cancu[ IU]/mL 0.35 - 5.00 08/09 Specimen Type: SERUM No comment entered. Ordering Provider: ESTHER CLAY Report Released Date/Time: Aug 01, 2023 08:30 AM Reporting Lab: [facility] [place] [facility] [address] [facility] [address] Performing Lab: [facility] [place] [facility] [address] [facility] [address] [facility] Vital Signs Combined list of inpatient and outpatient Vital Signs from Department of Defense and Veterans Affairs, ranging from 12 months to all on record, depending upon the facility. Vital Sign Value Date Comments Source SYSTOLIC BLOOD PRESSURE 165 05/28/20 24 14:26:38 [facility] DIASTOLIC BLOOD PRESSURE 67 024 14:26:38 [facility] PULSE OXIMETRY 97 05/28/2024 14:26:38 [facility] WEIGHT 198.6 05/28/2024 14:26:38 [facility] BMI 29kg/m2 05/28/2024 14:26:38 [facility] PAIN 2 05/28/2024 14[facility]26:38 [facility] HEIGHT 69 05/28/2024 14:26:38 [facility] TEMPERATURE 97.6 05/28/2024 14:26:38 [facility] PULSE 53 05/28/2024 14:26:38 [facility] RESPIRATION 16 05/28/2024 14:26:38 [facility] WEIGHT 190 11/19/2023 10:16:19 [facility] BMI 28kg/m2 11/19/2023 10:16:19 [facility] PAIN 6 11/19/2023 10:16:19 [facility] HEIGHT 69 11/19/2023 10:16:19 [facility] Encounters Combined list of: 1) Encounters from Department of Veterans Affairs facilities going back up to thelast 18 months. 2) Encounters from the Department of Defense facilities going back up to 280 months. 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
RODNEY PAGE TREY 04/03 [facility] FOOT ARCH SUPPORT REMOV JESÚS [id number] Diagnos is: ICD-10- CM M79.671 Pain in right foot
Frankie BERGMAN AVID 04/03 [facility] PSYTX W PT 45 MINUTES [id number] Diagnos is: ICD-10- CM F43.12 Post-tr aumatic stress disorde r, chronic
KEVIN CONN M 04/05 [facility] OFFICE O/P EST MOD 30-39 MIN [id number] Diagnos is: ICD-10- CM R51.9 Headach e, unspeci fied
MELODYSOL IEL Y 04/06 [facility] ACUPUNCT W/O STIMUL 15 MIN [id number] Diagnos is: ICD-10- CM M54.6 Pain in thoraci c spine<b r/> CHINTAN ORTIZ ISTOPHER M 04/09 [facility] Outpatient Encounter [id number] 04/17 [facility] VITAMIN B12 INJECTION [id number] Diagnos is: ICD-10- CM E53.8 Deficie ncy of other specifi ed B group vitamin s
Jessica FENG M 04/26 [facility] PSYTX W PT 45 MINUTES [id number] Diagnos is: ICD-10- CM F43.12 Post-tr aumatic stress disorde r, chronic
KEVIN CONN M 05/10 [facility] Out[facility]counter [id number] 05/16 [facility] Out[facility] Encounter [id number] 05/16 [facility] Out[facility] Encounter [id number] 05/21 [facility] OFFICE O/P EST LOW 20-29 MIN [id number] Diagnos is: ICD-10- CM M54.50 Low back pain, unspeci fied
GAUNYA,CHR ISTOPHER M 05/22 [facility] VITAMIN B12 INJECTION [id number] Diagnos is: ICD-10- CM E53.8 Deficie ncy of other specifi ed B group vitamin s
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
RODNEY PAGE TREY 06/06 [facility] Out[facility] Encounter [id number] 06/07 [facility] PSYTX W PT 45 MINUTES [id number] Diagnos is: ICD-10- CM F43.12 Post-tr aumatic stress disorde r, chronic
FABIEN,BR ITTNEY M 06/08 [facility] OFFICE O/P EST LOW 20-29 MIN [id number] Diagnos is: ICD-10- CM F43.12 Post-tr aumatic stress disorde r, chronic
SUNITHA,GRETA VALENCIAUELYN 06/12 [facility] OFF/OP EST MAY X REQ PHY/QHP [id number] Diagnos is: ICD-10- CM D51.0 Vitamin B12 defic anemia due to intrins ic factor deficie ncy<br/ > DEBBYANNJOCELIN 06/21 [facility] Outpatient Encounter [id number] 06/21 [facility] CASE MGMT-ORAL HEALTH LIT [id number] Diagnos is: ICD-10- CM K03.6 Deposit s [accret ions] on teeth<b r/> DANYEL ALAS VIRAJ K 06/22 [facility] DENTAL BITEWING FOUR IMAGES [id number] Diagnos is: ICD-10- CM K08.9 Disorde r of teeth and support ing structu res, unspeci fied
TOBI BRIGHT 06/22 [facility] Outpatient Encounter [id number] 06/28 [facility] INFRARED THERAPY [id number] Diagnos is: ICD-10- CM M54.50 Low back pain, unspeci fied
GAUNYA,CHR ISTOPHER M 07/05 [facility] Out[facility] En[facility] [id number] 07/11 [facility] INFRARED THERAPY [id number] Diagnos is: ICD-10- CM M54.50 Low back pain, unspeci fied
GAUNYA,CHR ISTOPHER M 07/12 [facility] INFRARED THERAPY [id number] Diagnos is: ICD-10- CM M54.50 Low back pain, unspeci fied
GAUNYA,CHR ISTOPHER M 07/19 [facility] PSYTX W PT 45 MINUTES [id number] Diagnos is: ICD-10- CM F43.12 Post-tr aumatic stress disorde r, chronic
FABIENKEVIN MONICANEY M 07/19 [facility] OFF/OP EST JANUARY X REQ PHY/QHP [id number] Diagnos is: ICD-10- CM D51.0 Vitamin B12 defic anemia due to intrins ic factor deficie ncy<br/ > JOCELIN BETANCOURT 07/19 [facility] Out[facility] Encounter [id number] 07/31 [facility] Out[facility] En[facility] [id number] 08/08 [facility] EYE EXAM ESTABLISH PATIENT [id number] Diagnos is: ICD-10- CM H40.113 1 Primary open-an gle glaucom a, bilater al, mild stage<b r/> JUNEMARTIN DIANNA E 08/08 [facility] OFFICE O/P EST LOW 20-29 MIN [id number] Diagnos is: ICD-10- CM M48.07 Spinal stenosi s, lumbosa cral region< br/> Meeta CLAY 08/13 [facility] INFRARED THERAPY [id number] Diagnos is: ICD-10- CM F43.12 Post-tr aumatic stress disorde r, chronic
GAUNYA,CHR ISTOPHER M 08/13 [facility] OFF/OP EST MAY X REQ PHY/QHP [id number] Diagnos is: ICD-10- CM D51.0 Vitamin B12 defic anemia due to intrins ic factor deficie ncy<br/ > JOCELIN BETANCOURT 08/16 [facility] Outpatient Encounter [id number] 08/23 [facility] PSYTX W PT 30 MINUTES [id number] Diagnos is: ICD-10- CM F43.12 Post-tr aumatic stress disorde r, chronic
FABIEN,BR ITTNEY M 08/23 [facility] Outpatient Encounter [id number] 09/04 [facility] OFF/OP EST JANUARY X REQ PHY/QHP [id number] Diagnos is: ICD-10- CM D51.0 Vitamin B12 defic anemia due to intrins ic factor deficie ncy<br/ > NIKSANGITA JOCELIN 09/12 [facility] Out[facility] En[facility] [id number] 09/18 [facility] DEBRIDE NAIL 6 OR MORE [id number] Diagnos is: ICD-10- CM 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
RODNEY PAGE 09/20 [facility] [id number] 09/21 [facility] Out[facility] Encounter [id number] 10/03 [facility] Out[facility] Encounter [id number] 10/04 [facility] INFRARED THERAPY [id number] Diagnos is: ICD-10- CM M54.50 Low back pain, unspeci fied
GAUNYA,CHR ISTOPHER M 10/08 [facility] En[facility] [id number] 10/10 [facility] Out[facility] Encounter [id number] 10/15 [facility] OFF/OP EST MAY X REQ PHY/QHP [id number] Diagnos is: ICD-10- CM D51.0 Vitamin B12 defic anemia due to intrins ic factor deficie ncy<br/ > JOCELIN BETANCOURT 10/15 [facility] Out[facility] Encounter [id number] 10/24 [facility] Out[facility] Encounter [id number] 10/31 [facility] OFF/OP EST MAY X REQ PHY/QHP [id number] Diagnos is: ICD-10- CM Z71.89 Other specifi ed drug and alcohol counsellor ing<br/ > JOCELIN BETANCOURT 11/11 [facility] PSYTX W PT 45 MINUTES [id number] Diagnos is: ICD-10- CM F43.12 Post-tr aumatic stress disorde r, chronic
FABIEN,BR ITTNEY M 11/11 [facility] Out[facility] Encounter [id number] 11/11 [facility] Out[facility] Encounter [id number] 11/12 [facility] Out[facility] Encounter [id number] 11/15 [facility] Out[facility] Encounter [id number] 11/18 [facility] OFFICE O/P EST MOD 30 MIN [id number] Diagnos is: ICD-10- CM M48.07 Spinal stenosi s, lumbosa cral region< br/> Meeta CLAY 11/18 [facility] Out[facility] Encounter [id number] 11/26 [facility] [id number] 12/04 [facility]counter [id number] 12/05 [facility] Encounter [id number] 12/06 [facility] OFF/OP EST MAY X REQ PHY/QHP [id number] Diagnos is: ICD-10- CM D51.0 Vitamin B12 defic anemia due to intrins ic factor deficie ncy<br/ > JOCELIN BETANCOURT 12/11 [facility] Out[facility] Encounter [id number] 12/11 [facility] [id number] 12/20 [facility] Encounter [id number] 12/20 [facility] INFRARED THERAPY [id number] Diagnos is: ICD-10- CM M54.50 Low back pain, unspeci fied
GAUNYA,CHR ISTOPHER M 01/03 [facility] PSYTX W PT 45 MINUTES [id number] Diagnos is: ICD-10- CM F43.12 Post-tr aumatic stress disorde r, chronic
KEVIN CONNWEEPING WATER M 01/06 [facility] OFF/OP EST MAY X REQ PHY/QHP [id number] Diagnos is: ICD-10- CM D51.0 Vitamin B12 defic anemia due to intrins ic factor deficie ncy<br/ > JOCELIN BETANCOURT 01/06 [facility] Out[facility] Encounter [id number] 01/14 [facility] INFRARED THERAPY [id number] Diagnos is: ICD-10- CM M54.50 Low back pain, unspeci fied
GAUNYA,CHR ISTOPHER M 01/20 [facility] OFF/OP EST MAY X REQ PHY/QHP [id number] Diagnos is: ICD-10- CM D51.0 Vitamin B12 defic anemia due to intrins ic factor deficie ncy<br/ > ZAMaribelVETTSANGITA, JOCELIN 02/03 [facility] Out[facility] Encounter [id number] 02/24 [facility] CASE [facility] LIT [id number] 1. Diagnos is: ICD-10- CM K03.6 Deposit s [accret ions] on teeth<b r/> BISHOP,DANYEL VIRAJ K 02/25 [facility] Outpatient [facility]counter [id number] 02/27 [facility] OFF/OP EST JANUARY X REQ PHY/QHP [id number] Diagnos is: ICD-10- CM D51.0 Vitamin B12 defic anemia due to intrins ic factor deficie ncy<br/ > JOCELIN BETANCOURT 03/10 [facility] PSYTX W PT 30 MINUTES [id number] Diagnos is: ICD-10- CM F43.12 Post-tr aumatic stress disorde r, chronic
FABIEN,BR ITTNEY M 03/10 [facility] EXTENDED VISUAL FIELD XM [id number] Diagnos is: ICD-10- CM H40.113 1 Primary open-an gle glaucom a, bilater al, mild stage<b r/> MARTIN WATKINS DIANNA E 03/12 [facility] CMPTR OPHTH IMG OPTIC NERVE [id number] Diagnos is: ICD-10- CM H40.113 1 Primary open-an gle glaucom a, bilater al, mild stage<b r/> BORASKI,AN DIANNA E 03/12 [facility] INTRM OPH EXAM EST PATIENT [id number] Diagnos is: ICD-10- CM H40.113 1 Primary open-an gle glaucom a, bilater al, mild stage<b r/> BORASKI,AN DIANNA E 03/12 [facility] Outpatient Encounter [id number] 03/17 [facility] Out[facility] Encounter [id number] 03/18 [facility] Outpatient Encounter [id number] 03/18 [facility] Outpatient Encounter [id number] 03/19 [facility] Outpatient Encounter [id number] 03/20 [facility] Outpatient Encounter [id number] 03/25 [facility] ACUPUNCT W/O STIMUL ADDL 15M [id number] Diagnos is: ICD-10- CM F43.12 Post-tr aumatic stress disorde r, chronic
GAUNYA,CHR ISTOPHER M 03/26 [facility] Outpatient Encounter [id number] 03/28 [facility] FIT SPECTACLES MULTIFOCAL [id number] Diagnos is: ICD-10- CM Z46.0 Encount er for fit/adj st of spectac les and contact lenses< br/> Analisa SALTER J 03/31 [facility] OFF/OP EST JANUARY X REQ PHY/QHP [id number] Diagnos is: ICD-10- CM D51.0 Vitamin B12 defic anemia due to intrins ic factor deficie ncy<br/ > JOCELIN BETANCOURT 04/14 [facility] Out[facility] Encounter [id number] 04/17 [facility] ACUPUNCT W/O STIMUL ADDL 15M [id number] Diagnos is: ICD-10- CM F43.12 Post-tr aumatic stress disorde r, chronic
DIANA,[facility] ISTOPHER M 04/18 [facility] Out[facility] Encounter [id number] 04/23 [facility] CORE BUILD-UP INCL ANY PINS [id number] Diagnos is: ICD-10- CM K08.9 Disorde r of teeth and support ing structu res, unspeci fied
TOBI BRIGHT 04/24 [facility] Out[facility] Encounter [id number] 04/25 [facility] Outpatient Encounter [id number] 04/30 [facility] Outpatient Encounter [id number] [facility] Outpatient Encounter [id number] 05/09 [facility] OFF/OP EST MAY X REQ PHY/QHP [id number] Diagnos is: ICD-10- CM D51.0 Vitamin B12 defic anemia due to intrins ic factor deficie ncy<br/ > JOCELIN BETANCOURT 05/15 [facility] Out[facility] Encounter [id number] 05/27 [facility] PSYTX W PT 30 MINUTES [id number] Diagnos is: ICD-10- CM F43.12 Post-tr aumatic stress disorde r, chronic
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, includi ng hip<br/ > Meeta CLAY 05/28 [facility] Outpatient Encounter [id number] 05/29 [facility] Outpatient Encounter [id number] 06/12 [facility] Outpatient Encounter [id number] 1.06/13 [facility] OFF/OP EST JANUARY X REQ PHY/QHP [id number] Diagnos is: ICD-10- CM D51.0 Vitamin B12 defic anemia due to intrins ic factor deficie ncy<br/ > JOCELIN BETANCOURT 06/17 [facility] INFRARED THERAPY [id number] Diagnos is: ICD-10- CM M54.50 Low back pain, unspeci fied
GAUNYA,CHR ISTOPHER M 06/24 [facility] Out[facility] Encounter [id number] 06/26 [facility] Outpatient Encounter [id number] 06/27 [facility] Outpatient Encounter [id number] 1.07/03 [facility] Outpatient Encounter [id number] 07/03 [facility] ACUPUNCT W/O STIMUL ADDL 15M [id number] Diagnos is: ICD-10- CM M54.50 Low back pain, unspeci fied
CHINTAN ORTIZ ISTOPHER M 07/08 [facility] OFF/OP EST JANUARY X REQ PHY/QHP [id number] 1. Diagnos is: ICD-10- CM D51.0 Vitamin B12 defic anemia due to intrins ic factor deficie ncy<br/ > ZANVETTOR, JOCELIN 07/22 [facility] PSYTX W PT 45 MINUTES [id number] Diagnos is: ICD-10- CM F43.12 Post-tr aumatic stress disorde r, chronic
FABIENKEVIN MONICAWEEPING WATER M 07/22 [facility] Outpatient Encounter [id number] 1.08/14 [facility] CORE BUILD-UP INCL ANY PINS [id number] 1. Diagnos is: ICD-10- CM K08.9 Disorde r of teeth and support ing structu res, unspeci fied
TOBI BRIGHT 08/15 [facility] OFF/OP EST JANUARY X REQ PHY/QHP [id number] 1. Diagnos is: ICD-10- CM D51.0 Vitamin B12 defic anemia due to intrins ic factor deficie ncy<br/ > ZANVETTOR, JOCELIN 08/19 [facility] INFRARED THERAPY [id number] Diagnos is: ICD-10- CM M54.50 Low back pain, unspeci fied
GAUNYA,CHR ISTOPHER M 08/26 [facility] Outpatient Encounter [id number] 08/26 [facility] Outpatient Encounter [id number] 09/01 [facility] CASE MGMT-ORAL HEALTH LIT [id number] Diagnos is: ICD-10- CM K03.6 Deposit s [accret ions] on teeth<b r/> BISHOPDANYEL VIRAJ K 09/02 [facility] OFFICE O/P EST LOW 20 MIN [id number] Diagnos is: ICD-10- CM B35.1 Tinea unguium
EUFEMIA SCHULZ RLJOHNSON D 09/11 [facility] Outpatient Encounter [id number] [facility] THERAPEUTI C EXERCISES [id number] Diagnos is: ICD-10- CM M25.562 Pain in left knee
JOHANN AYALA B 09/15 [facility] INFRARED THERAPY [id number] [id number] Diagnos is: ICD-10- CM F43.12 Post-tr aumatic stress disorde r, chronic
GAUNYA,CHR ISTOPHER M 09/16 [facility] Outpatient Encounter [id number] 09/17 [facility] OFF/OP EST MAY X REQ PHY/QHP [id number] Diagnos is: ICD-10- CM Z71.89 Other specifi ed drug and alcohol counsellor ing<br/ > Analisa DOTSON 09/25 [facility] PSYTX W PT 45 MINUTES [id number] Diagnos is: ICD-10- CM F43.12 Post-tr aumatic stress disorde r, chronic
KEVIN CONN M 09/25 [facility] THERAPEUTI C EXERCISES [id number] Diagnos is: ICD-10- CM M25.562 Pain in left knee
JOHANN AYALA 10/02 [facility] Social History Combined list of available smoking, tobacco, and other social history from Department of Defense and Veterans Affairs facilities. Social History Type Response Date Comment Source Tobacco smoking status [facility] VA-TOBACCO USE FORMER CIGARETTES 07/22/2024 [facility] History of tobacco use VA-TOBACCO NEVER USED OTHER TYPE 07/22/2024 [facility] History of tobacco use [place]-TOBACCO FORMER USER 07/19/2023 [facility] History of tobacco use VA-TOBACCO FORMER USER 08/04/2022 [facility] History of tobacco use VA-TOBACCO QUIT 15 YRS OR MORE 08/16/2021 [facility] History of tobacco use VA-TOBACCO NEVER USED 08/02/2021 [facility] History of tobacco use VA-TOBACCO FORMER USER 07/02/2020 [facility] History of tobacco use VA-TOBACCO QUIT 15 YRS OR MORE 04/03/2019 [facility] [place] [facility] History of tobacco use [place] FORMER USER 08/15/2018 [facility] [place] [facility] History of tobacco use QUIT TOBACCO USE > 7 YEARS AGO 07/23/2017 quit >40 yrs ago [facility] [place] [facility] History of tobacco use QUIT TOBACCO USE > 7 YEARS AGO 08/18/2016 quit 40 years ago [facility] [place] [facility] History of tobacco use QUIT TOBACCO USE > 7 YEARS AGO 09/16/2015 Over 30 years [facility] [place] [facility] History of tobacco use HISTORY OF SMOKING 09/19/2005 30 yrs ago [facility] [place] [facility] History of tobacco use HISTORY OF SMOKING 09/30/2004 quit 30 yrs ago [facility] [place] [facility] History of tobacco use HISTORY OF SMOKING 09/11/2003 quit 28 years ago [facility] [place] [place] [facility] History of tobacco use QUIT TOBACCO USE > 7 YEARS AGO 05/06/2003 smoked briefly while in [facility], none in decades. [facility] Plan of Care List of future care activities from Department of Veterans Affairs facilities. Additional future care activities may be listed in the Assessment and Plan section. Date/Time Care Activity Care Activity Detail Facili ty 10/07/2024 [facility] [facility] 10/10/2024 AMBULATORY - NONE AMBULATORY - NONE [facility] [place] [facility] 10/15/2024 AMBULATORY - NONE AMBULATORY - NONE [facility] [place] [facility] 10/16/2024 AMBULATORY - REHAB MEDICINE AMBULATORY - REHAB MEDICINE [facility] [place] [facility] 10/23/2024 AMBULATORY - MED[facility] [place] [facility] 10/28/2024 AMBULATORY - PSYCHIATRY AMBULATORY - PSYC HIATRY [facility] [place] [facility] 10/31/2024 AMBULATORY - MEDICINE AMBULATORY - MEDICI [facility] [place] [facility] 11/11/2024 AMBULATORY - MEDICINE [facility] 11/12/2024 AMBULATORY - MEDICINE AMBULATORY - [facility]ICI [facility] 11/19/2024 AMBULATORY - NONE AMBULATORY - NONE [facility] [place] [facility] 11/20/2024 AMBULATORY - PSYCHIATRY AMBULATORY - PSYC [facility]ATRY [facility] 11/26/2024 AMBULATORY - MEDICINE AMBULATORY - MEDICI [facility] [place] [facility] 02/27/2025 AMBULATORY - NONE AMBULATORY - NONE [facility] [place] [facility] 08/19/2024 Consult Order COMMUNITY CARE-G I GENERAL Cons Labor Commissioner's Choice [facility] [facility] 10/02/2024 Consult Order COMMUNITY CARE-DERMATOLOGY Cons Labor Commissioner's Choice [facility]
[2024-10-03 13:01] LABS: Alanine Aminotransferase 12 U/L (0-40); Albumin Level 3.9 g/dL (3.5-5.0); Alkaline Phosphatase 79 U/L (39-117); Aspartate Amino Transferase 16 U/L (5-37); Bilirubin Direct 0.3 mg/dL (0.0-0.5); Total Protein 6.5 g/dL (6.5-8.0)
== END 2024-10-03 11:29 | disposition home or self-care (01) ==
LOC: HO.LABR 11:28
PROVIDERS: Visit Provider Internal Medicine
DX: K50.00 Crohn's disease of small intestine without complications (principal)
CPT/HCPCS: 36415; 80076; 85025

== ENCOUNTER 2024-12-02 08:56 | Outpatient (REF) | payer OTHER, SELFPAY ==
[2024-12-02 09:10] LABS: MANUAL DIFF FLAG NO
[2024-12-02 09:20] LABS: Basophils Percent Auto 0.2 % (0-2); Eosinophils Absolute Auto 0.1 X10*3/uL (0.0-0.4); Eosinophils Percent Auto 1.4 % (0-4); Hematocrit 40.9 % (42.0-52.0); Imm Gran Abs Auto 0.02 X10*3/uL (0.00-0.03); Imm Gran Pct Auto 0.5 % (0.0-0.4); Lymphocytes Absolute Auto 0.9 X10*3/uL (1.2-4.9); Mean Corpuscular HGB Conc 34.2 g/dl (31.0-36.0); Mean Corpuscular Hemoglobin 29.5 pg (27.0-33.0); Mean Corpuscular Volume 86.3 fL (80.0-98.0); Mean Platelet Volume 9.5 fL (9.4-12.4); Monocytes Absolute Auto 0.3 X10*3/uL (0.1-1.2); Monocytes Percent Auto 7.2 % (2-11); Neutrophils Absolute Auto 3.1 x10*3/uL (2.0-8.3); Neutrophils Percent Auto 70.7 % (45-73); Platelet Count 140 X10*3/uL (160-400); Red Blood Count 4.74 X10*6/uL (4.60-5.80); Red Cell Distribution Width 14.4 % (11.0-16.0); White Blood Count 4.3 X10*3/uL (4.8-10.8)
--- OUTSIDE RECORDS SUMMARY | 2024-12-02 09:37 | XMS_ITS | Clinical Summary ---
Author Organization [facility] Address [address] [place] [phone] Phone Care Team Providers Care Match Marker Name Role Phone Carmen Nav Kellie CABRERA Primary Care Provider Allergies No known active allergies Medications Medication Sig Dispensed Refills Start Date End Date Status aspirin 81 MG EC tablet Take 81 mg by mouth daily. Active amLODIPine (NORVASC) 10 MG tablet Take 10 mg by mouth daily. Active lisinopril (PRINIVIL,ZESTRIL) 10 MG tablet Take 10 mg by mouth daily. Active omeprazole (PRILOSEC) 20 MG capsule Take 20 mg by mouth daily. Active sertraline (ZOLOFT) 50 MG tablet Take 50 mg by mouth daily. Active cholecalciferol (VITAMIN D3) 2,000 unit tablet Take 1,000 Units by mouth daily. Active atorvastatin (LIPITOR) 40 MG tablet Take 40 mg by mouth daily. Active folic acid (FOLVITE) 1 MG tablet Take 1 mg by mouth daily. Active diphenoxylate-atropine (LOMOTIL) 2.5-0.025 mg per tablet Take 1 tablet by mouth as needed for diarrhea. Active Social History Tobacco Use Types Packs/Day Years Used Date Smoking Tobacco: Former Cigarettes Q uit: 1975 Smokeless Tobacco: Never Alcohol Use Standard Drinks/Week Comments Yes 0 (1 standard drink = 0.6 oz pur e alcohol) socially Education Answer Date Recorded Are you interested in more education? Not on sánchez e 12/29/2022 Are you concerned about learning? Not on file 12/29/2022 No 12/29/2022 No 12/29/2022 Digital Access Answer Date Recorded No 01/30/2023 No 01/30/2023 No 01/30/2023 Reliable internet access at home? Not on file 01/30/2023 Device with a working camera? Not on file Sex and Gender Information Value Date Recorded Sex Assigned at Not on file Gender Identity Not on file Sexual Orientation Not on file Last Filed Vital Signs Vital Sign Reading Time Taken Comments Blood Pressure - - Pulse - - Temperature - - Respiratory Rate - - Oxygen Saturation - - Inhaled Oxygen Concentration - - Weight 85.5 kg (188 lb 9.6 oz) 09/11/2019 9:26 A M EST Height 175.3 cm (5' 9 ) 09/11/2019 9:26 AM EST Body Mass Index 27.85 09/11/2019 9:26 AM EST Plan of Treatment Health Maintenance Due Date Last Done Comments Adult Td,Tdap Booster 1950 CREATININE LEVEL 1950 LIPID PANEL 1949 POTASSIUM LEVEL 1949 DEPRESSION SCREENING 1961 SMOKING Hx and SMOKELESS TOB ACCO SCREENING 1962 HEPATITIS C SCREENING 1967 COLOGUARD 1994 COLONOSCOPY 1994 COLORECTAL CANCER SCREENING 1994 FIT TEST 1994 FOBT 1994 SIGMOIDOSCOPY 1994 VIRTUAL COLONOSCOPY 1994 PNEUMOCOCCAL VACCINES (50+ y ears) (1 of 1 - PCV) 1999 ZOSTER VACCINES (1 of 2) 1999 RSV VACCINE (1 - 1-dose 75+ series) 01/17/2024 INFLUENZA VACCINE (#1) 2024 07/05/2015 COVID-19 VACCINE ( - 2023-2 5 season) 2024 HEPATITIS A VACCINES Aged Out No long er eligible based on patient's age to complete this topic HIB VACCINES Aged Out No longer eligi ble based on patient's age to complete this topic MENINGOCOCCAL VACCINES (ACWY) Aged Out No longer eligible based on patient's age to complete this topic Medical Devices Not on file McMenamin, Onesimo Personal/Famil y Self [address] [place] [id number] McMenamin, Onesimo Personal/Famil y Self [address] [place] [address] McMenamin, Onesimo Personal/Famil y Self [address] [place] [id number] Care Teams Match Marker Relationship Specialty Start Date End Date Nav Morales DO [address] [place] [phone] PCP - General Internal Medicine 07/09/19 Additional Source Comments The information contained in this document represents components of the legal health record. It is not the complete legal health record.[facility]
--- OUTSIDE RECORDS SUMMARY | 2024-12-02 09:37 | XMS_ITS ---
Author Organization [facility] Address [address] [place] [address] Care Team Providers Care Fountain Operator Name Role Phone Wilfredo SINGH, Philippe Primary Care Provider Unava ilNav Odell Unavailable [phone] REASON FOR VISIT screening,hx polyps Problems Problem Type SNOMED Code ICD Code Onset Dates Problem Status W/U Status Risk Notes Problem Diverticular disease of colon (293677044) Diverticulosis of large intestine without perforation or abscess without bleeding (K57.30) Active confirmed Encounters Encounter Location Date Provider Diagnosis [facility] Out[place] [address] [place] [id number] 12/21/2023 Nav Lundberg Encounter for scre ening colonoscopy Z12.11 ; Colon polyps K63.5 ; Diverticulosis of large intestine without perforation or abscess without bleeding K57.30 and Other hemorrhoids K64.8 Assessments Encounter Date Diagnosis (ICD Code) Assessment Notes Treatment Notes Treatment Clinical Notes Section Notes 12/21/2023 Encounter for screening colonoscopy (ICD-10 - Z12.11) 12/21/2023 Colon polyps (ICD-10 - K63.5) 12/21/2023 Diverticulosis of large intestine without perforation or abscess without bleeding (ICD-10 - K57.30) 12/21/2023 Other hemorrhoids (ICD-10 - K64.8) Plan Of Treatment Next Appt Details Provider Name:Nav Hopkins Toño , 10/08/2025 09:20:00 AM, [address], [address], [place], [address], Progress Notes * AUTUMN BAILEY:[birth year] (74 yo M)Acc No.[id number]:12/21/2023 COLON WITH MAC Patient:?KACY BAILEY Provider:?Nav Lundberg MD :1950???Age:73 Y???Sex:Male Gómez e:12/21/2023 Address:[address] [place] [address] Pcp:Philippe Villalobos NP Subjective: * Chief Complaints: * ???1. Screening,hx polyps. * Medical History:? Objective: * Vitals:? Assessment: * Assessment: 1.?Encounter for screening c olonoscopy - Z12.11 (Primary)???2.?Colon polyps - K63.5???3.?Diverticulosis of large intestine without perforation or abscess without bleeding - K57.30???4.?Other hemorrhoids - K64.8??? Plan: * Treatment: * Procedure Codes:?79238 LESIO N REMOVAL COLONOSCOPY, Modifiers: 33 , 05488 COLONOSCOPY AND BIOPSY, Modifiers: 59 , 33 * * The named appointment provid er may or may not be the originator of this progress note, and it is not deemed complete until electronically signed by the appointment provider. Sign off status: Pending * Provider:?Nav Lundberg MD Date:? 024 Generated for Peewee wood/Alisa/eTransmitting on:?12/02/2024 09:37 AM EDT
--- OUTSIDE RECORDS SUMMARY | 2024-12-02 09:37 | XMS_ITS ---
Author Organization [facility] Address [address] [place] [id number] Care Team Providers Care Tar Pot Man Name Role Phone Wilfredo SINGH, Philippe Primary Care Provider Nav [place] Unavailable [phone] Allergies No Known Allergies REASON FOR VISIT Patient presents today for crohn's disease Medications Medication SIG (Take, Route, Frequency, Duration) Notes Start Date End Date Status Tamsulosin HCl 0.4 MG Oral for 30 Active Lisinopril 20 MG Oral for 90 A ctive Azasan 75 MG TAKE 1 TABLET AT BED TIME (PLEASE DO LABS) for 90 Active Diphenoxylate-Atropine 2.5-0.025 MG TAKE 1 TO 2 TABLETS BY MOUTH 4 TIMES A DAY NEEDED FOR DIRRHEA for 30 11/18/2023 Active Finasteride 5 MG TAKE 1 TABLET BY ARELI TH EVERY DAY IN THE MORNING Oral for 90 Active Atorvastatin Calcium 40 MG 1 tablet Oral ly Once a day Active Aspir-81 81 MG 1 tablet Orally Once a day Active amLODIPine Besylate 10 MG Orally Active Folic Acid 1 MG 1 tablet Orally Once a day Active Sertraline HCl 50 MG Orally Active azaTHIOprine 75 MG 1 Orally Once a day for 90 days 12/14/2023 Active azaTHIOprine 75 MG 1 Orally Once a day for 30 days 12/14/2023 Active Dulcolax (colon prep) 5 MG take at 3:00 p.m and 7:00p.m. Orally two tablets twice a day for one day for 1 day 12/08/2023 Active Omeprazole 20 MG Orally TIW Ac tive Vitamin D Active MiraLax (colon prep) 17 GM/SCOOP 1 238Gm bottle mixed with Gatorade or Crystal Light Orally begin at 5:00 p.m. the day before the procedure for 1 day 12/08/2023 Active Vital Signs Blood pressure systolic 00 mm Hg 10/07/19 25 Blood pressure diastolic 00 mm Hg 025 Height 69.50 in 10/07/2024 Weight 187 lbs 10/07/2024 BMI 27.22 kg/m2 10/07/2024 Encounters Encounter Location Date Provider Diagnosis [facility] [address] [place] [address] 10/07/2024 Nav Lundberg Crohns disease of small intestine without complication K50.00 Assessments Encounter Date Diagnosis (ICD Code) Assessment Notes Treatment Notes Treatment Clinical Notes Section Notes 10/07/2024 Crohns disease of small intestine without complication (ICD-10 - K50.00) Do labs every other month Overall, Kacy appears well. His Crohn's disease remains in clinical remission on his current regimen of the azathioprine. We did review the findings on his colonoscopy. Given his age and relatively minimal findings, I advised him that he would not need any further screening colonoscopies going forward. I did advise him to certainly continue his current regimen of the azathioprine and to continue to do his CBC and liver profile every other month. If things remain well I will plan to see him in one year for a followup visit. I did advise him to certainly call in the interim if he has any problems or questions before that. Kacy was comfortable with this plan. Thank you again for allowing me to participate in Kacy's care. I shall continue to keep you advised of his progress. Plan Of Treatment Treatment Notes Assessment Notes Crohns disease of small intestine withou t complication Do labs every other month Pending Test Test Name Order Date LIVER PROFILE 10/07/2024 CBC w DIFF 10/07/2024 Next Appt Details Follow Up: 1 Year, Reason: Provider Name:Nav Lundberg , 10/08/2025 09:20:00 AM, [address], [address], [place], [address], Progress Notes * JAYSONMEG MERCADOOB:[birth year] (74 yo M)Acc No.[id number]:10/07/2024 Progress Notes Patient:?KACY RIVERA Provider:?Nav Lundberg MD :1950???Age:74 Y???Sex:Male Gómez e:10/07/2024 Address:[address] [place], [place] [id number] Pcp:Philippe Villalobos NP Subjective: * Chief Complaints: * ???Patient presents today fo r crohn's disease * HPI: ???incontinence:? I saw Kacy in followup today in regard to his underlying history of Crohn's disease. ?I last saw Kacy in December of 2023, at which time he underwent a colonoscopy. This revealed 3 small polyps, 2 of which were tubular adenomas and one of which was a serrated adenoma. There was no evidence of any significant dysplasia within the polyps. There was no evidence of any active Crohn's disease in the small intestine nor colon. ?Since that time he has been feeling well. He remains on his azathioprine 75 mg daily and his most recent labs from just several days ago at the end of September revealed a normal CBC and liver profile. He enjoys a good appetite and denies any significant heartburn or dysphagia. He denies any abdominal pain, jaundice, nor weight loss. He describes that his bowel movements have been regular for the most part without any significant diarrhea nor any signs of bleeding. He will take an occasional Lomotil but not on a daily basis. * ROS:?General/Constitutional:?Change in appetite?denies.?Chills?denies.?Fatigue?denies.?Ophthalmologic:?Patient denies? Negative..?ENT:?Patient denies?Negative..?Respiratory:?Patient denies?No coughing/hemoptysis..?Cardiovascular:?Patient denies? No chest pain/orthopnea..?Gastrointestinal:?Comments?See HPI for details.?Genitourinary:?Patient denies? No dysuria/hematuria..?Musculoskeletal:?Patient denies? No specific arthralgias/myalgias..?Skin:?Patient denies?No rash/pruritus..?Neurologic:?Patient denies? No headaches/seizures..?Psychiatric:?Patient denies?Negative..? * Medical History:? * Surgical History:?Shoulder s urgery Knee surgery Hernia Elbow Ankle Squamous cell ca removed from back of his right leg in 03/2012 Basal cell Ca removed from lower left leg in 06/2013- august 2021 Partial knee replacement right /Dr. Pyle 07/25/2016Squamous cell cancer removed from face SQUAMOUS CELL ON RIGHT HAND quamous cell two areas in right forearm and wrist 01/2023 Squamous cell back of head 2023 * Hospitalization/Major Diagno stic Procedure:?No Hospitalization History. * Family History:?Father: dece ased.?Mother: , colon cancer in her 70, diagnosed with Colon cancer.?Paternal uncle: colon cancer in his 30.? Colon cancer in his mother in her 70s, and a paternal uncle in his 30's. * Social History:?Tobacco Use:?Tobacco Use/Smoking?Are you a: nonsmoker.?Drugs/Alcohol:?Alcohol Screen?Points: 1, Interpretation: Negative.?Miscellaneous:?Marital status: . 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 Going to school majoring in fine arts at [employer]. ???He does not smoke or use any significant amounts of alcohol. * Medications:?TakingVitamin D Omeprazole 20 MG Tablet Delayed Release Orally TIWSertraline HCl 50 MG Tablet Orally amLODIPine Besylate 10 MG Tablet Orally Aspir-81 81 MG Tablet Delayed Release 1 tablet Orally Once a dayAtorvastatin Calcium 40 MG Tablet 1 tablet Orally Once a dayFolic Acid 1 MG Tablet 1 tablet Orally Once a dayAzasan 75 MG Tablet TAKE 1 TABLET AT BEDTIME (PLEASE DO LABS) Lisinopril 20 MG Tablet Oral Tamsulosin HCl 0.4 MG Capsule Oral Finasteride 5 MG Tablet TAKE 1 TABLET BY MOUTH EVERY DAY IN THE MORNING Oral Diphenoxylate-Atropine 2.5-0.025 MG Tablet TAKE 1 TO 2 TABLETS BY MOUTH 4 TIMES A DAY NEEDED FOR DIRRHEA MiraLax (colon prep) 17 GM/SCOOP Powder 1 238Gm bottle mixed with Gatorade or Crystal Light Orally begin at 5:00 p.m. the day before the procedureDulcolax (colon prep) 5 MG Tablet Delayed Release take at 3:00 p.m and 7:00p.m. Orally two tablets twice a day for one dayazaTHIOprine 75 MG Tablet 1 Orally Once a dayazaTHIOprine 75 MG Tablet 1 Orally Once a dayMedication List reviewed and reconciled with the patientTaking Vitamin D Taking Omeprazole 20 MG Tablet Delayed Release Orally TIWTaking Sertraline HCl 50 MG Tablet Orally Taking amLODIPine Besylate 10 MG Tablet Orally Taking Aspir-81 81 MG Tablet Delayed Release 1 tablet Orally Once a dayTaking Atorvastatin Calcium 40 MG Tablet 1 tablet Orally Once a dayTaking Folic Acid 1 MG Tablet 1 tablet Orally Once a dayTaking Azasan 75 MG Tablet TAKE 1 TABLET AT BEDTIME (PLEASE DO LABS) Taking Lisinopril 20 MG Tablet Oral Taking Tamsulosin HCl 0.4 MG Capsule Oral Taking Finasteride 5 MG Tablet TAKE 1 TABLET BY MOUTH EVERY DAY IN THE MORNING Oral Taking Diphenoxylate-Atropine 2.5-0.025 MG Tablet TAKE 1 TO 2 TABLETS BY MOUTH 4 TIMES A DAY NEEDED FOR DIRRHEA Taking MiraLax (colon prep) 17 GM/SCOOP Powder 1 238Gm bottle mixed with Gatorade or Crystal Light Orally begin at 5:00 p.m. the day before the procedureTaking Dulcolax (colon prep) 5 MG Tablet Delayed Release take at 3:00 p.m and 7:00p.m. Orally two tablets twice a day for one dayTaking azaTHIOprine 75 MG Tablet 1 Orally Once a dayTaking azaTHIOprine 75 MG Tablet 1 Orally Once a dayMedication List reviewed and reconciled with the patient * Allergies:?N.K.D.A.yes[Aller gies Verified] Objective: * Vitals:?Wt: 187 lbs, Ht: 69. 50 in, BMI:27.22 Index, BP: 00/00 mm Hg. * Examination: ???General Examination: ?GENERAL APPEARANCE:?pleasant, well nourished, well developed, in no acute distress.?EYES:?sclera non-icteric.?ORAL CAVITY:?mucosa moist.?NECK/THYROID:?no cervical lymphadenopathy, neck supple.?SKIN:?nonjaundiced, no spider angiomata..?HEART:?S1, S2 normal.?LUNGS:?clear to auscultation bilaterally.?ABDOMEN:?normal bowel sounds, no guarding or rigidity, no hepatosplenomegaly, no masses palpable, soft, nontender, nondistended..?EXTREMITIES:?no edema.?NEUROLOGIC:?alert and oriented.? Assessment: * Assessment: 1.?Crohns disease of small i ntestine without complication - K50.00 (Primary)? Overall, Kacy appears well. His Crohn's disease remains in clinical remission on his current regimen of the azathioprine. We did review the findings on his colonoscopy. Given his age and relatively minimal findings, I advised him that he would not need any further screening colonoscopies going forward. I did advise him to certainly continue his current regimen of the azathioprine and to continue to do his CBC and liver profile every other month. If things remain well I will plan to see him in one year for a followup visit. I did advise him to certainly call in the interim if he has any problems or questions before that. Kacy was comfortable with this plan. Thank you again for allowing me to participate in Kacy's care. I shall continue to keep you advised of his progress. Plan: * Treatment: ?LAB: CBC w DIFF* every other month starting e 11/2024 Notes: Do labs every other month?? * Procedure Codes:?3017F COLOR ECTAL CA SCREEN DOC [id number] TOBACCO [id number] BP SCR NOT PRFRM REC REASON NOS * Preventive Medicine:? ??Counseling:?Care goal follow-up plan:?Above Normal BMI Follow-up?Giving encouragement to exercise,?BMI management provided?Yes.? * Follow Up:?1 Year * * Sign off status: Completed true * Provider:?Nav Lundberg MD Date:? 025 Generated for Peewee wood/Alisa/Darcyitting on:?12/02/2024 09:37 AM EDT History and Physical Notes * HPI (History of Present Illness) Category Sub-Category Detail Notes Category Not es incontinence I saw Kacy in followup today in regard to his underlying history of Crohn's disease. I last saw Kacy in December of 2023, at which time he underwent a colonoscopy. This revealed 3 small polyps, 2 of which were tubular adenomas and one of which was a serrated adenoma. There was no evidence of any significant dysplasia within the polyps. There was no evidence of any active Crohn's disease in the small intestine nor colon. Since that time he has been feeling well. He remains on his azathioprine 75 mg daily and his most recent labs from just several days ago at the end of September revealed a normal CBC and liver profile. He enjoys a good appetite and denies any significant heartburn or dysphagia. He denies any abdominal pain, jaundice, nor weight loss. He describes that his bowel movements have been regular for the most part without any significant diarrhea nor any signs of bleeding. He will take an occasional Lomotil but not on a daily basis. Examination Category Sub-Category Detail Notes Category Not es General Examination GENERAL APPEARANCE: pleasant , well nourished, well developed, in no acute distress EYES: sclera non-icteric NECK/THYROID: no cervical lymphade nopathy, neck supple HEART: S1, S2 normal LUNGS: clear to auscultatio n bilaterally ABDOMEN: normal bowel sounds, no guarding or rigidity, no hepatosplenomegaly, no masses palpable, soft, nontender, nondistended. NEUROLOGIC: alert and oriented SKIN: nonjaundiced, no spi cat angiomata. EXTREMITIES: no edema ORAL CAVITY: mucosa moist
--- OUTSIDE RECORDS SUMMARY | 2024-12-02 09:38 | XMS_ITS ---
Author Organization [facility] Address [address] [place] [address] Care Team Providers Care Sample Distributor Name Role Phone Wilfredo SINGH, Philippe Primary Care Provider UnaNav Awad Unavailable [phone] REASON FOR VISIT Please schedule f/u with Dr. Lundberg Encounters Encounter Location Date Provider Diagnosis [facility] [address] [place] [address] 12/27/2023 Nav Lundberg Plan Of Treatment Next Appt Details Provider Name:Nav Lundberg , 10/08/2025 09:20:00 AM, [address], [address], [place], [address], Progress Notes * MEG RIVERAOB:[birth year] (73 yo M)Acc No.[id number]:12/27/2023 Patient:?KACY RIVERA :1950???Age:73 Y???Sex:Male Address:[address] [place] [address] * true * Date:? Generated for Printi nina/Alisa/eTransmitting on:?12/02/2024 09:38 AM EDT
[2024-12-02 09:57] LABS: Alanine Aminotransferase 10 U/L (0-40); Albumin Level 3.8 g/dL (3.5-5.0); Alkaline Phosphatase 71 U/L (39-117); Aspartate Amino Transferase 16 U/L (5-37); Bilirubin Direct 0.4 mg/dL (0.0-0.5); Bilirubin Total 1.1 mg/dL (0.0-1.0)
== END 2024-12-02 08:57 | disposition home or self-care (01) ==
LOC: HO.LABR 08:56
PROVIDERS: Visit Provider Internal Medicine
DX: K50.00 Crohn's disease of small intestine without complications (principal)
CPT/HCPCS: 36415; 80076; 85025

== ENCOUNTER 2025-02-02 09:57 | Outpatient (REF) | payer OTHER, SELFPAY ==
[2025-02-02 10:12] LABS: MANUAL DIFF FLAG NO
[2025-02-02 11:04] LABS: Basophils Percent Auto 0.2 % (0-2); Eosinophils Absolute Auto 0.1 X10*3/uL (0.0-0.4); Eosinophils Percent Auto 1.4 % (0-4); Hemoglobin 15.1 g/dl (14.0-18.0); Imm Gran Abs Auto 0.02 X10*3/uL (0.00-0.03); Imm Gran Pct Auto 0.4 % (0.0-0.4); Lymphocytes Percent Auto 17.3 % (20-40); Mean Corpuscular HGB Conc 34.3 g/dl (31.0-36.0); Mean Corpuscular Hemoglobin 29.4 pg (27.0-33.0); Mean Corpuscular Volume 85.6 fL (80.0-98.0); Monocytes Absolute Auto 0.4 X10*3/uL (0.1-1.2); Neutrophils Absolute Auto 4.1 x10*3/uL (2.0-8.3); Neutrophils Percent Auto 73.7 % (45-73); Platelet Count 164 X10*3/uL (160-400); Red Blood Count 5.14 X10*6/uL (4.60-5.80); White Blood Count 5.6 X10*3/uL (4.8-10.8)
[2025-02-02 11:55] LABS: Alanine Aminotransferase 14 U/L (0-40); Albumin Level 4.2 g/dL (3.5-5.0); Alkaline Phosphatase 78 U/L (39-117); Aspartate Amino Transferase 18 U/L (5-37); Bilirubin Direct 0.4 mg/dL (0.0-0.5); Bilirubin Total 1.1 mg/dL (0.0-1.0); Total Protein 6.5 g/dL (6.5-8.0)
== END 2025-02-02 09:58 | disposition home or self-care (01) ==
LOC: HO.LABR 09:57
PROVIDERS: PCP Nurse Practitioner Family; Visit Provider Internal Medicine
DX: K50.00 Crohn's disease of small intestine without complications (principal)
CPT/HCPCS: 36415; 80076; 85025

== ENCOUNTER 2025-04-09 09:12 | Outpatient (REF) | payer OTHER, SELFPAY ==
--- OUTSIDE RECORDS SUMMARY | 2024-05-27 06:00 | XMS_ITS | Encounter Summary ---
Author Name [facility] [place] Address [address], [place] [address] Care Team Providers Care Outdoor Fitness Trainer Name Role Phone SANJAY CLAY Primary Care Provider Unavaila ble Insurance Providers: All historical and current Section Date Range: From patient's date of to the date document was created. This section includes the names of all active insurance providers for the patient. Insurance Provider Type of Coverage Plan Name Start of Policy Coverage End of Policy Coverage Group Number Member ID Insurance Provider's Telephone Number Policy Staples's Name Patient's Relationship to Policy Staples ANTHEM BCBS [facility] PREFERRED PROVIDER ORGANIZAT ION (PPO) [place] SELF + ONE Feb 02, 2016 106 [id number] [phone] JAYSONMILKACY SANTOS PATIENT ANTHEM BCBS [place] PREFERRED PROVIDER ORGANIZAT ION (PPO) [place] SELF Jun 07, 2013 [id number] [phone] JAYSONMILCHRISTIE SANTOSIN PATIENT BCBS [facility] PREFERRED PROVIDER ORGANIZAT ION (PPO) PSHB STD SELF PLUS 1 Sep 03, 2024 [id number] ADRIANNEKACY SANTOS PATIENT [place] PREFERRED PROVIDER ORGANIZAT ION (PPO) [place] SELF+ [id number] 6 Feb 02, 2016 106 [id number] [phone] KACY BAILEY PATIENT [place] PREFERRED PROVIDER ORGANIZAT ION (PPO) [place] FAMIL Y 105 Sep 15, 2000 105 [id number] Sergio BROWN PATIENT [place] PREFERRED PROVIDER ORGANIZAT ION (PPO) [place] SELF+ ONE Feb 02, 2016 106 [id number] KACY BAILEY PATIENT [place] PREFERRED PROVIDER ORGANIZAT ION (PPO) [place] FAMIL Y Sep 15, 2000 105 [id number] [phone] Sergio BROWNIN PATIENT [place] DENTAL DENTAL INSURANCE [place] Feb 02, 2016 [id number] [phone] KACY BAI[place] PREFERRED PROVIDER ORGANIZAT ION (PPO) [place] SELF+ 1 Feb 02, 2016 106 [id number] KACY BAI[place] PAT[place] PREFERRED PROVIDER ORGANIZAT ION (PPO) [place] SELF Jun 07, 2013 104 [id number] [phone] KACY BAILEY PATIENT BCBS OF [facility] FEDERAL PREFERRED PROVIDER ORGANIZAT ION (PPO) BASIC FAMIL Y Sep 15, 2000 [id number] [phone] Sergio BROWN PATIENT [place] ([id number]) PRESCRIPT ION FEP Sep 03, 2010 [id number] [phone] Sergio BROWNIN PATIENT [place] FEP BCBS PRESCRIPT ION [place] FEPRX PLAN Feb 02, 2016 [id number] KACY BAILEY PATIENT [place] FEPRX PLAN PRESCRIPT ION [place] FEPRX Jun 07, 2013 [id number] JENNIFER GARCIAAMIN,Sergio RENDONIN PATIENT [place]-F EP BCBS PRESCRIPT ION CIERA [place] EMPLO YEES Sep 03, 2010 [id number] JENNIFER GARCIAAMIN,Sergio MOHIT PATIENT [place] EP BCBS PRESCRIPT ION [place] EMPLO YEES Sep 03, 2010 [id number] Sergio BROWN PATIENT [place] EP BCBS PRESCRIPT ION BCBS FEP PLAN Sep 03, 2010 [id number] KACY BAILEY PATIENT [place] BCBS [place] PREFERRED PROVIDER ORGANIZAT ION (PPO) [place] FAMIL Y Sep 15, 2000 [id number] Sergio BROWN PATIENT [place] BCBS [facility] FED[place]AL PREFERRED PROVIDER ORGANIZAT ION (PPO) [place] PLUS ONE * Feb 02, 2016 106 [id number] [phone] KACY BAILEY PATIENT MEDICARE ([facility]) MEDICARE () PART A January 01, 2014 PART A [id number] Sergio BROWN PATIENT MEDICARE ([facility]) MEDICARE () PART A January 01, 2014 PART A [id number] [phone] KACY BAILEY PATIENT MEDICARE ([facility]) MEDICARE () PART A January 01, 2014 PART A [id number] KACY BAILEY PATIENT MEDICARE ([facility]) MEDICARE () PART A January 01, 2014 PART A [id number] KACY BAILEY PATIENT MEDICARE ([facility]) MEDICARE () PART A January 01, 2014 PART A [id number] [facility] KACY BAILEY PATIENT MEDICARE ([facility]) MEDICARE ) PART A January 01, 2014 PART A [id number] KACY BAILEY PATIENT MEDICARE ([facility]) MEDICARE () PART A January 01, 2014 PART A [id number] KACY BAILEY PATIENT Selected Encounter This section includes the information on record at [place] for the Encounter. Date/Time Encounter Type Encounter Description Reason Provider Source May 27, 2024 10:00 AM PSYTX W PT 30 MINUTES [facility] - IND ICD-10-CM F43.12 Post-traumatic stress disorder, chronic JUSTICE CONN E Encounter Template Text not used by [place] Assessments - Encounter Diagnoses This section includes the primary and secondary diagnoses documented for the Encounter. Date/Time Primary/Secondary Diagnosis Diagnosis Name Provider Source Jun 02, 2024 03:45 PM PRIMARY Post-traumatic stress disorder, chronic JUSTICE CONN [facility] [place] [facility] Plan of Treatment: Future Appointments (+ 6 months) and Future Tests (+/- 45 days) The Plan of Treatment section includes future care activities for the patient from all [place] treatmentfacilities. This section includes future appointments and future orders which are active, pending or scheduled. Future Appointments This section includes appointments that were scheduled to occur 6 months from the date of the Encounter, up to a maximum of 20 appointments. The data comes from all [place] treatment facilities. Appointment Date/Time Appointment Type Appointme nt Facility Name May 28, 2024 03:00 PM AMBULATORY - MEDICINE [facility] [place] [facility] Jun 17, 2024 09:30 AM AMBULATORY - MEDICINE [facility] [place] [facility] Jun 24, 2024 10:30 AM AMBULATORY - MEDICINE [facility] [place] [facility] Jun 27, 2024 02:45 PM AMBULATORY - MEDICINE [facility] [place] [facility] Jul 03, 2024 04:45 PM AMBULATORY - MEDICINE [facility] [place] [facility] Jul 08, 2024 10:00 AM AMBULATORY - MEDICINE [facility] [place] [facility] Jul 22, 2024 09:30 AM AMBULATORY - MEDICINE [facility] [place] [facility] Jul 22, 2024 10:00 AM AMBULATORY - PSYCHIATRY [facility] [place] [facility] Aug 15, 2024 07:30 AM AMBULATORY - NONE [facility] [place] [facility] Aug 19, 2024 09:30 AM AMBULATORY - MEDICINE [facility] [place] [facility] Aug 26, 2024 09:30 AM AMBULATORY - MEDICINE [facility] [place] [facility] Sep 02, 2024 07:30 AM AMBULATORY - NONE [facility] [place] [facility] Sep 11, 2024 09:00 AM AMBULATORY - MEDICINE [facility] [place] [facility] Sep 15, 2024 08:00 AM AMBULATORY - REHAB MEDICIN E [facility] [place] [facility] Sep 16, 2024 10:00 AM AMBULATORY - MEDICINE [facility] [place] [facility] Sep 25, 2024 09:00 AM AMBULATORY - MEDICINE [facility] [place] [facility] Sep 25, 2024 09:01 AM AMBULATORY - PSYCHIATRY [facility] [place] [facility] Oct 02, 2024 08:00 AM AMBULATORY - REHAB MEDICIN E [facility] [place] [facility] Oct 07, 2024 09:50 AM AMBULATORY - MEDICINE [facility] [place] [facility] Oct 10, 2024 07:30 AM AMBULATORY - NONE [facility] [place] [facility] Lab Results: +/- 30 days of the encounter This section includes the Chemistry and Hematology Lab Results on record with VA for the patient. Radiology Reports and Pathology Reports are provided separately, in subsequent sections. Lab Results This section contains the Chemistry/Hematology Results that were resulted 30 days before or 30 daysafter the date of the Encounter. Date/Time Source Result Type Result - Unit Interpretation Reference Range Specimen Type Comment May 28, 2024 03:21 PM [facility] [place] [facility] PSA SERUM Specimen Type: SERUM No comment entered. Ordering Provider: SANJAY CLAY Report Released Date/Time: May 28, 2024 02:59 PM Reporting Lab: [facility] [place] [facility] [address] [facility] [address] Performing Lab: [facility] [place] [address] [address] PSA 1.91 ng/mL 0.00-4.00 May 28, 2024 03:21 PM [facility] [place] [facility] TSH SERUM Specimen Type: SERUM No comment entered. Ordering Provider: SANJAY CLAY Report Released Date/Time: May 28, 2024 02:59 PM Reporting Lab: [facility] [place] [facility] [address] [facility] [address] Performing Lab: [facility] [place] [address] [address] TSH 1.33 u[IU]/mL 0.35-5.00 May 28, 2024 03:21 PM [facility] VITAMIN B12 SERUM Specimen Type: SERUM No comment entered. Ordering Provider: SANJAY CLAY Report Released Date/Time: May 28, 2024 03:13 PM Reporting Lab: [address] [address] Performing Lab: [address] [address] VITAMIN B12 412 pg/mL 200-900 May 28, 2024 03:21 PM [facility] LIVER FUNCTION SERUM Specimen Type: SERUM No comment entered. Ordering Provider: SANJAY CLAY Report Released Date/Time: May 28, 2024 02:59 PM Reporting Lab: [address] [address] Performing Lab: [address] [address] PROTEIN,TOTAL 6.0 g/dL 6.0-8.3 ALBUMIN 3.6 g/dL 3.5-5.0 ALKALINE PHOSPHATASE 71 U/L 40-150 AST 14 U/L 5-34 ALT 13 U/L BILIRUBIN, TOTAL 0.9 mg/dL 0.2-1.2 May 28, 2024 03:21 PM [facility] HEMOGLOBIN A1C PANEL BLOOD Specimen Type: BLO OD Comment: Values obtained from A1C measurements can vary. For atypical A1C assays, a reported value of 7.0 could actually be between 6.72 and 7.28 if measured by a reference method. A reported value of 9.0 could actually be between 8.73 and 9.27. Ref: http://www.ngsp.org/CAPdata.asp Ordering Provider: SANJAY CLAY Report Released Date/Time: May 28, 2024 02:59 PM Reporting Lab: [address] [address] Performing Lab: [address] [address] HEMOGLOBIN A1C 5.2 4.0-5.6 May 28, 2024 03:21 PM [facility] BASIC METABOLIC PANEL (non-fasting) SERUM Spe cimen Type: SERUM No comment entered. Ordering Provider: SANJAY CLAY Report Released Date/Time: May 28, 2024 02:59 PM Reporting Lab: [facility] [address] [facility] [facility] [address] Performing Lab: [address] [address] UREA NITROGEN 11 mg/dL 7-25 GLUCOSE 90 mg/dL 65-100 SODIUM 143 mmol/L 135-145 POTASSIUM 3.8 mmol/L 3.5-5.0 CHLORIDE 107 mmol/L 100-110 CO2 29 meq/L 20-30 CREATININE, Serum 0.85 mg/dL 0.50-1.40 eGFR(CKD-EPI 2020) >90 mL/min >60 May 28, 2024 03:21 PM [facility] LIPID PANEL, NON FASTING SERUM Specimen Type: SERUM No comment entered. Ordering Provider: SANJAY CLAY Report Released Date/Time: May 28, 2024 02:59 PM Reporting Lab: [address] [address] Performing Lab: [address] [address] CHOLESTEROL 104 mg/dL TRIGLYCERIDE 81 mg/dL 0-150 LDL calculated 47 mg/dL 0-129 CHOL/HDL 2.5 HDL CHOLESTEROL 41 mg/dL 40-60 May 28, 2024 03:21 PM [facility] CBC BLOOD Specimen Type: BLOOD No comment entered. Ordering Provider: SANJAY CLAY Report Released Date/Time: May 28, 2024 02:59 PM Reporting Lab: [address] [address] Performing Lab: [address] [address] WBC 5.01 10*3/uL 4.50-11.00 RBC 4.64 10*6/uL 4.23-5.66 HGB 13.6 g/dL 12.8-17 HCT 39.9 39.2-50.4 MCV 86.0 fL 82-99 MCHC 34.1 g/dL 30.8-35.1 PLT 149 10*3/uL 140-360 RDW-CV 14.0 12.0-16.0 MCH 29.3 pg 26.2-32.6 Social History: Smoking Status (Most current) and Tobacco Use (All prior to encounter date) This section includes the most current, and the historical, smoking and tobacco- related health factors from the [place] facility where the Encounter took place. Current Smoking Status This section includes the most current smoking, or tobacco-related health factor, from the [place] facility where the Encounter took place. Date/Time Current Smoking Status Comment [facility] Jul 19, 2023 10:00 AM VA-TOBACCO FORMER USER [facility] [place] [facility] Tobacco Use History This section includes a history of the smoking, or tobacco-related health factors, that were collected on or before the date of the Encounter. The data comes from the [place] facility where the Encounter took place. Date/Time Smoking Status/Tobac co Use Comment Facility Jul 19, 2023 10:00 AM VA-TOBACCO QUIT 15 YRS OR MORE [facility] [place] [facility] Aug 04, 2022 10:00 AM VA-TOBACCO FORMER USER [facility] [place] [facility] Aug 04, 2022 10:00 AM VA-TOBACCO QUIT 15 YRS OR MORE [facility] [place] [facility] Aug 16, 2021 09:30 AM VA-TOBACCO FORMER USER [facility] [place] [facility] Aug 16, 2021 09:30 AM VA-TOBACCO QUIT 15 YRS OR MORE [facility] [place] [facility] Aug 02, 2021 10:00 AM VA-TOBACCO NEVER USED [facility] [place] [facility] Jul 02, 2020 10:00 AM VA-TOBACCO FORMER USER [facility] [place] [facility] Jul 02, 2020 10:00 AM VA-TOBACCO QUIT 15 YRS OR MORE [facility] [place] [facility] Apr 03, 2019 08:43 AM VA-TOBACCO FORMER USER [facility] [place] [facility] Apr 03, 2019 08:43 AM VA-TOBACCO QUIT 15 [facility]RS OR [facility] Aug 15, 2018 11:04 AM [facility] Aug 15, 2018 11:04 AM VA-TOBACCO QUIT 5 TO < [address] [facility] Jul 23, 2017 10:17 AM QUIT TOBACCO USE > 7 YEARS AGO quit >[address] [facility] Aug 18, 2016 11:18 AM QUIT TOBACCO USE > 7 YEARS AGO quit [address] [facility] Sep 16, 2015 01:29 PM QUIT TOBACCO USE > 7 YEARS AGO Over [address] [facility] Sep 19, 2005 02:43 PM HISTORY OF SMOKING [address] [facility] Sep 30, 2004 02:00 PM HISTORY OF SMOKING quit [address] [facility] Sep 11, 2003 03:03 PM HISTORY OF SMOKING quit [address] [facility] May 06, 2003 04:18 PM QUIT TOBACCO USE > 7 YEARS AGO smoked briefly while in [facility], none in decades. [facility] Encounter Notes: All associated encounter notes This section contains the clinical notes associated to the Encounter. Date/Time Encounter Note(s) Provider Source May 27, 2024 10:00 AM PSYCHOLOGY NOTE: LOCAL TITLE: PSYCHOLOGY NOTE STANDARD TITLE: PSYCHOLOGY NOTE DATE OF NOTE: MAY 27, 2024@10:00 ENTRY DATE: MAY 27, 2024@15:33:42 AUTHOR: VAUGHN CONN EXP COSIGNER: URGENCY: STATUS: COMPLETED identified with 2 identifiers: [X] name [X] Visual recognition Procedure: Individual psychotherapy Date/time: 05/27/24; 10-10:35a Session: 15 Problem: PTSD, chronic, manifesting in occasional irritability/reactivity, occasional experience of dysregulation in the context of trauma triggers Goal: I would like my PTSD symptoms to remain low ; maintain connection to [facility] Intervention: supportive psychotherapy Progress: reports that he's generally been doing well and provided relevant updates since last session. reports that he's had a number of cancerous lesions removed from his skin, but denies that this causes significant distress given the length of time he's been dealing with his condition, which was validated. Putnam reports that he enjoyed a recent trip with his to travel and has been doing well with new academic semester. Dx: PTSD, chronic MSE: A&O x 4, cooperative Speech: normal RRTP Psychomotor/bx: unremarkable Thought process: linear; goal-directed Thought content: unremarkable Mood: appeared generally euthymic; congruent, full affect No recent nor remote memory impairment endorsed; not formally assessed No recent AVH endorsed nor observed in present session; did not appear to be responding to internal stimuli Insight: fair Judgment: fair Putnam did not endorse current SI/HI nor did he appear to be in any acute distress Ongoing Plan: Next appt with this screen writer scheduled for 07/22/24. Putnam encouraged to continue participation in psychiatry services // VAUGHN CONN PSYD CLINICAL PSYCHOLOGIST - [facility] Signed: 06/02/2024 15:45 [facility]N [facility]
[2025-04-09 09:24] LABS: MANUAL DIFF FLAG NO
--- OUTSIDE RECORDS SUMMARY | 2025-04-09 09:34 | XMS_ITS | Clinical Summary ---
Author Organization [facility] Address [address] [place] [phone] Phone Care Team Providers Care Passenger Screener Name Role Phone Carmen Nav Kellie CABRERA Primary Care Provider Allergies No known active allergies Medications aspirin 81 MG EC tablet Take 81 mg by mouth daily. Active amLODIPine (NORVASC) 10 MG tablet Take 10 mg by mouth daily. Active lisinopril (PRINIVIL,ZESTRI L) 10 MG tablet Take 10 mg by [...] Take 1 mg by mouth daily. Active diphenoxylate-at ropine (LOMOTIL) 2.5-0.025 mg per tablet Take 1 tablet by mouth as needed for diarrhea. Active Social History Tobacco Use Types Packs/Day Years Used Date Smoking Tobacco: Former Cigarettes Q uit: 1974 Smokeless Tobacco: Never Alcohol Use Standard Drinks/Week [...] Recorded Sex Assigned at Not on file Legal Sex Male 3:05 PM EST Gender Identity Not on file Sexual Orientation [...] ACCO SCREENING 1962 HEPATITIS C SCREENING 1967 PNEUMOCOCCAL VACCINES (50+ y ears) (1 of 1 - PCV) 1999 ZOSTER VACCINES (1 of 2) 1999 RSV VACCINE (1 - 1-dose 75+ series) 01/17/2024 COVID-19 VACCINE (1 - 2023-2 5 season) 2024 HEPATITIS A VACCINES Aged Out No long er eligible based on patient's age to complete this topic HIB VACCINES Aged Out No longer eligi ble based on patient's age to complete this topic MENINGOCOCCAL VACCINES (ACWY) Aged Out No longer eligible based on patient's age to complete this topic MENINGOCOCCAL VACCINES (B) Aged Out N o longer eligible based on patient's age to complete this topic Medical Devices Not on file [place] [place] [address] NETWORK [facility] [place] [address] [facility] [place] [address] [facility] NETWORK [facility] Care Teams Passenger Screener Relationship Specialty Start Date End Date Nav Morales DO [address] [place] [phone] PCP - General Internal Medicine 07/09/19 Additional Source Comments The information contained in this document represents components of the legal health record. It is not the complete legal health record.[facility]
[2025-04-09 09:52] LABS: Hematocrit 42.7 % (42.0-52.0); Hemoglobin 14.9 g/dl (14.0-18.0); Imm Gran Abs Auto 0.01 X10*3/uL (0.00-0.03); Imm Gran Pct Auto 0.2 % (0.0-0.4); Lymphocytes Absolute Auto 0.9 X10*3/uL (1.2-4.9); Mean Corpuscular HGB Conc 34.9 g/dl (31.0-36.0); Mean Corpuscular Hemoglobin 29.5 pg (27.0-33.0); Mean Corpuscular Volume 84.6 fL (80.0-98.0); NRBC Abs Auto 0.000 X10*3/uL (0.0-0.012); NRBC Pct Auto 0.0 /100WBC (0.0-0.2); Platelet Count 146 X10*3/uL (160-400); Red Blood Count 5.05 X10*6/uL (4.60-5.80); White Blood Count 4.6 X10*3/uL (4.8-10.8)
[2025-04-09 10:40] LABS: Alanine Aminotransferase 12 U/L (0-40); Albumin Level 4.1 g/dL (3.5-5.0); Alkaline Phosphatase 80 U/L (39-117); Aspartate Amino Transferase 18 U/L (5-37); Total Protein 6.3 g/dL (6.5-8.0)
== END 2025-04-09 09:13 | disposition home or self-care (01) ==
LOC: HO.LABR 09:12
PROVIDERS: PCP Nurse Practitioner Family; Visit Provider Internal Medicine
DX: K50.00 Crohn's disease of small intestine without complications (principal)
CPT/HCPCS: 36415; 80076; 85025

== ENCOUNTER 2025-06-09 10:56 | Outpatient (REF) | payer OTHER, SELFPAY ==
[2025-06-09 11:18] LABS: MANUAL DIFF FLAG NO
[2025-06-09 11:55] LABS: Hematocrit 42.6 % (42.0-52.0); Hemoglobin 14.4 g/dl (14.0-18.0); Imm Gran Abs Auto 0.02 X10*3/uL (0.00-0.03); Imm Gran Pct Auto 0.4 % (0.0-0.4); Lymphocytes Absolute Auto 0.9 X10*3/uL (1.2-4.9); Mean Corpuscular HGB Conc 33.8 g/dl (31.0-36.0); Mean Corpuscular Hemoglobin 29.2 pg (27.0-33.0); Mean Corpuscular Volume 86.4 fL (80.0-98.0); NRBC Abs Auto 0.000 X10*3/uL (0.0-0.012); NRBC Pct Auto 0.0 /100WBC (0.0-0.2); Platelet Count 153 X10*3/uL (160-400); Red Blood Count 4.93 X10*6/uL (4.60-5.80); White Blood Count 5.1 X10*3/uL (4.8-10.8)
[2025-06-09 12:30] LABS: Alanine Aminotransferase 14 U/L (0-40); Albumin Level 4.1 g/dL (3.5-5.0); Alkaline Phosphatase 79 U/L (39-117); Aspartate Amino Transferase 19 U/L (5-37); Total Protein 6.2 g/dL (6.5-8.0)
--- OUTSIDE RECORDS SUMMARY | 2025-06-09 13:30 | XMS_ITS | Clinical Summary ---
Author Organization [facility] Address [address] [place] [phone] Phone Care Team Providers Care Watch Assembly Instructor Name Role Phone Carmen Nav Kellie CABRERA [...] 1-dose 75+ series) 01/17/2024 INFLUENZA VACCINE (#1) 2025 07/05/2015 COVID-19 VACCINE ( - 2023-2 5 season) 2025 HEPATITIS A VACCINES Aged Out No long [...] topic Medical Devices Not on file [place] [address] NETWORK [facility] [address] [place] [address] [place] [place] [address] [employer]WORK [facility]WORK [facility] [place] [address] [facility] Care Teams Watch Assembly Instructor Relationship Specialty Start Date End Date Nav Morales DO [address] [place] [id number] PCP - General Internal Medicine 07/09/19 Additional Source Comments The information contained in this document represents components of the legal health record. It is not the complete legal health record.[facility]
== END 2025-06-09 10:57 | disposition home or self-care (01) ==
LOC: HO.LABR 10:56
PROVIDERS: PCP Nurse Practitioner Family; Visit Provider Internal Medicine
DX: K50.00 Crohn's disease of small intestine without complications (principal)
CPT/HCPCS: 36415; 80076; 85025

== ENCOUNTER 2025-08-10 12:17 | Outpatient (REF) | payer OTHER, SELFPAY ==
[2025-08-10 12:38] LABS: MANUAL DIFF FLAG NO
[2025-08-10 13:11] LABS: Hematocrit 43.9 % (42.0-52.0); Hemoglobin 14.7 g/dl (14.0-18.0); Imm Gran Abs Auto 0.01 X10*3/uL (0.00-0.03); Imm Gran Pct Auto 0.2 % (0.0-0.4); Lymphocytes Absolute Auto 1.0 X10*3/uL (1.2-4.9); Mean Corpuscular HGB Conc 33.5 g/dl (31.0-36.0); Mean Corpuscular Hemoglobin 29.0 pg (27.0-33.0); Mean Corpuscular Volume 86.6 fL (80.0-98.0); NRBC Abs Auto 0.000 X10*3/uL (0.0-0.012); NRBC Pct Auto 0.0 /100WBC (0.0-0.2); Platelet Count 171 X10*3/uL (160-400); Red Blood Count 5.07 X10*6/uL (4.60-5.80); White Blood Count 5.9 X10*3/uL (4.8-10.8)
[2025-08-10 13:41] LABS: Alanine Aminotransferase 15 U/L (0-40); Albumin Level 4.3 g/dL (3.5-5.0); Alkaline Phosphatase 86 U/L (39-117); Aspartate Amino Transferase 18 U/L (5-37); Total Protein 6.4 g/dL (6.5-8.0)
--- OUTSIDE RECORDS SUMMARY | 2025-08-10 20:21 | XMS_ITS | Clinical Summary ---
Author Organization [facility] Address [address] [place] [phone] Phone Care Team Providers Care Message And Delivery Service Pricer Name Role Phone Carmen Nav Kellie CABRERA [...] INFLUENZA VACCINE (#1) 2025 07/05/2015 COVID-19 VACCINE (1 - 2024-2 6 season) 2025 HEPATITIS A VACCINES Aged Out [...] topic Medical Devices Not on file [place] [address] NETWORK [facility] [address] [place] [address] [employer]WORK [facility] [place] [address] [address] [facility] Care Teams Message And Delivery Service Pricer Relationship Specialty Start Date End Date Nav Morales DO [address] [place] [id number] PCP - General Internal Medicine 07/09/19 Additional Source Comments The information contained in this document represents components of the legal health record. It is not the complete legal health record.[facility]
== END 2025-08-10 12:18 | disposition home or self-care (01) ==
LOC: HO.LAB 12:17
PROVIDERS: PCP Internal Medicine Endocrinology, Diabetes & Metabolism; Visit Provider Internal Medicine
DX: K50.00 Crohn's disease of small intestine without complications (principal)
CPT/HCPCS: 36415; 80076; 85025